=== PATIENT | male | born 1955 | race Caucasian/White ===

== ENCOUNTER → 2016-07-19 | Outpatient (REF) | payer OTHER ==
[~2016-07-19] MED LIST: ASPI325T PO; BACL10TA2 PO; DICL13PA TD; DULC10SU2 PR; FLEEENE4 PR; IBUP200C PO; IBUP80TA PO; LIPI10TA PO; LISI-542 PO; MILKSUS PO; NORCOTAB PO; NYST100024 TOP; OMEP20CA3 PO; PANT40TA2 PO; SENN1TAB3 PO; SENN8.6C PO; TYLE325T5 PO
[2016-07-19 13:05] LABS: ALBUMIN 3.2 GM/DL (3.2-5.2); ALBUMIN/GLOBULIN RATIO 0.67 (1.00-1.93); ALKALINE PHOSPHATASE 160 U/L (45-117); ALT/SGPT 24 U/L (12-78); ANION GAP 13 MEQ/L (8-16); AST/SGOT 22 U/L (15-37); BILIRUBIN,TOTAL 0.3 MG/DL (0.2-1.0); BLOOD UREA NITROGEN 18 MG/DL (7-18); CALCIUM LEVEL 8.4 MG/DL (8.8-10.2); CARBON DIOXIDE LEVEL 25 MEQ/L (21-32); CHLORIDE LEVEL 105 MEQ/L (98-107); CHOLESTEROL LEVEL 149 MG/DL (<200); CREATININE FOR GFR 0.99 MG/DL (0.70-1.30); GLOMERULAR FILTRATION RATE > 60.0 (>49); GLUCOSE, FASTING 100 MG/DL (80-110); SODIUM LEVEL 143 MEQ/L (136-145); TRIGLYCERIDES LEVEL 141 MG/DL (<150)
== END | disposition home or self-care (01) ==
LOC: M SFHCPLAZ 08:28
PROVIDERS: ATTEND Physician Assistant Medical
DX: I69.320 Aphasia following cerebral infarction (principal)

== ENCOUNTER → 2017-01-26 | Outpatient (REF) | payer MEDICARE ==
[~2017-01-26] MED LIST changes: -IBUP200C PO; +IBUP200C10 PO; -NYST100024 TOP; +NYST1POW9 TOP
[2017-01-26 13:08] LABS: BASO % 0.5 % (0.0-1.0); EOS # 0.2 K/mm3 (0.0-0.50); EOS % 3.7 % (0.0-3.0); LARGE UNSTAINED CELL # 0.1 K/mm3 (0.0-0.4); LARGE UNSTAINED CELL % 2.1 % (0.0-4.0); LYMPH # 1.5 K/mm3 (1.5-4.5); LYMPH % 23.3 % (24.0-44.0); MEAN CORPUSCULAR HEMOGLOBIN 29.4 pg (27.0-33.0); MEAN CORPUSCULAR HGB CONC 32.4 g/dl (32.0-36.5); MEAN CORPUSCULAR VOLUME 90.6 fl (80.0-96.0); MONO # 0.4 K/mm3 (0.0-0.8); MONO % 6.1 % (0.0-5.0); NEUTROPHILS # 4.1 K/mm3 (1.8-7.7); NEUTROPHILS % 64.3 % (36.0-66.0); PLATELET COUNT, AUTOMATED 230 k/mm3 (150-450); RED CELL DISTRIBUTION WIDTH 14.5 % (11.5-14.5); WHITE BLOOD COUNT 6.3 K/mm3 (4.0-10.0)
[2017-01-26 14:07] LABS: ALBUMIN 3.1 GM/DL (3.2-5.2); ALBUMIN/GLOBULIN RATIO 0.69 (1.00-1.93); ALKALINE PHOSPHATASE 139 U/L (45-117); ALT/SGPT 28 U/L (12-78); ANION GAP 8 MEQ/L (8-16); AST/SGOT 22 U/L (15-37); BILIRUBIN,TOTAL 0.3 MG/DL (0.2-1.0); BLOOD UREA NITROGEN 20 MG/DL (7-18); CALCIUM LEVEL 8.9 MG/DL (8.8-10.2); CARBON DIOXIDE LEVEL 28 MEQ/L (21-32); CHLORIDE LEVEL 105 MEQ/L (98-107); CHOLESTEROL LEVEL 202 MG/DL (<200); CREATININE FOR GFR 0.97 MG/DL (0.70-1.30); FREE T4 1.16 NG/DL (0.76-1.46); GLOMERULAR FILTRATION RATE > 60.0 (>49); GLUCOSE, FASTING 134 MG/DL (80-110); POTASSIUM SERUM 3.8 MEQ/L (3.5-5.1); SODIUM LEVEL 141 MEQ/L (136-145); TOTAL PROTEIN 7.6 GM/DL (6.4-8.2); TRIGLYCERIDES LEVEL 247 MG/DL (<150)
== END ==
LOC: M SFHCPLAZ 11:31
PROVIDERS: ATTEND Physician Assistant Medical
DX: I10 Essential (primary) hypertension (principal); E78.2 Mixed hyperlipidemia; F32.9 Major depressive disorder, single episode, unspecified
CPT/HCPCS: 80053; 80061; 82550; 84439; 84443; 85025; G0463

== ENCOUNTER → 2017-03-06 | Outpatient (CLI) | payer MEDICARE ==
--- NOTE | 2017-03-06 17:39 | REP ---
MRI BRAIN WITHOUT AND WITH CONTRAST: HISTORY: Vertigo. CONTRAST: ProHance 18 mL COMPARISON: 07/23/2015 An area of increased signal intensity on T2-weighted images is present in the left frontal, temporal and parietal lobes. There is dilatation of the overlying cortical sulci and body of the left lateral ventricle. This represents an old infarction. A chronic hemorrhagic component is present. An area of increased signal intensity on T2-weighted images is present in the right basal ganglia. This represents an old lacunar infarction. Scattered punctate areas of increased signal intensity on T2-weighted images are present in the periventricular and subcortical white matter. This represents small vessel ischemic disease. There is no acute intraparenchymal hemorrhage, acute infarct, mass or midline shift. There is minimal peripheral enhancement surrounding the chronic hemorrhagic component of the left hemispheric infarction. The ventricular system and cortical sulci are dilated consistent with mild volume loss. Cavum septi pellucidi and vergae are present. The left cerebral peduncle is atrophic consistent with Wallerian degeneration. There is no extracerebral collection. The sinuses are clear. IMPRESSION: 1. Old left hemispheric cerebral infarction. 2. Old right basal ganglia lacunar infarction. 3. Small vessel ischemic disease. 4. Mild volume loss. Signed by Wade Solitario MD 03/07/2017 09:05 A
== END ==
LOC: M RAD 15:39
PROVIDERS: ATTEND Physician Assistant Medical
DX: R42 Dizziness and giddiness (principal); I63.9 Cerebral infarction, unspecified
CPT/HCPCS: 70553; A9576

== ENCOUNTER → 2017-06-12 | Outpatient (CLI) | payer MEDICARE ==
[~2017-06-12] MED LIST changes: -ASPI325T PO; -BACL10TA2 PO; -DICL13PA TD; -DULC10SU2 PR; -FLEEENE4 PR; +GASTROGRAFIN SOLUTION 30ML (Q9963) As Ordered; -IBUP200C10 PO; -IBUP80TA PO; +ISOVUE-370 76% 100ML VIAL (Q9967) As Ordered; -LIPI10TA PO; -LISI-542 PO; -MILKSUS PO; -NORCOTAB PO; -NYST1POW9 TOP; -OMEP20CA3 PO; -PANT40TA2 PO; -SENN1TAB3 PO; -SENN8.6C PO; -TYLE325T5 PO
== END ==
LOC: M RAD 15:15
DX: R93.421 Abnormal radiologic findings on diagnostic imaging of right kidney (principal); K57.30 Diverticulosis of large intestine without perforation or abscess without bleeding
CPT/HCPCS: Q9963

== ENCOUNTER → 2017-06-27 | Outpatient (CLI) | payer MEDICARE ==
[~2017-06-27] MED LIST changes: -GASTROGRAFIN SOLUTION 30ML (Q9963) As Ordered; -ISOVUE-370 76% 100ML VIAL (Q9967) As Ordered; +PROHANCE 279.3MG/ML 15ML VIAL (A9576) As Ordered; +PROHANCE 279.3MG/ML 5ML VIAL (A9576) As Ordered
== END ==
LOC: M RAD 14:09
DX: N28.89 Other specified disorders of kidney and ureter (principal)
CPT/HCPCS: A9576

== ENCOUNTER 2017-07-05 09:19 | Outpatient (CLI) | payer MEDICARE ==
[2017-07-21] MEDS ORDERED: E-Z-GAS II EFFERVESCENT PACKET (SODIUM BICARB./CITRIC ACID/SIMETHICONE) As Ordered ×2 (09:02)
[2017-07-21] MEDS ORDERED: E-Z-PAQUE 96% w/w SUSP 176GM BTL As Ordered ×2 (09:02)
[2017-07-21] MEDS ORDERED: E-Z-HD 98% w/w 340GM SUSP BTL As Ordered ×2 (09:02)
== END 2017-07-21 ==
LOC: M RAD 09:19
DX: R10.13 Epigastric pain (principal); Z98.890 Other specified postprocedural states
CPT/HCPCS: 74245

== ENCOUNTER → 2017-07-17 | Outpatient (CLI) | payer MEDICARE ==
[2017-07-17 11:49] LABS: HEMATOCRIT 48.7 % (42.0-52.0); HEMOGLOBIN 15.1 g/dl (14.0-18.0); MEAN CORPUSCULAR HEMOGLOBIN 28.1 pg (27.0-33.0); MEAN CORPUSCULAR VOLUME 90.7 fl (80.0-96.0); PLATELET COUNT, AUTOMATED 205 10^3/uL (150-450); RED BLOOD COUNT 5.37 10^6/uL (4.30-6.10); RED CELL DISTRIBUTION WIDTH 16.2 % (11.5-14.5); WHITE BLOOD COUNT 7.6 10^3/uL (4.0-10.0)
[2017-07-17 11:59] LABS: INR 1.03; PROTHROMBIN TIME 13.6 SECONDS (12.4-14.5)
[2017-07-17 12:45] LABS: ALBUMIN 3.1 GM/DL (3.2-5.2); ALBUMIN/GLOBULIN RATIO 0.69 (1.00-1.93); ALKALINE PHOSPHATASE 133 U/L (45-117); ALT/SGPT 21 U/L (12-78); ANION GAP 7 MEQ/L (8-16); AST/SGOT 21 U/L (7-37); BILIRUBIN,TOTAL 0.3 MG/DL (0.2-1.0); BLOOD UREA NITROGEN 15 MG/DL (7-18); CALCIUM LEVEL 8.4 MG/DL (8.8-10.2); CARBON DIOXIDE LEVEL 29 MEQ/L (21-32); CHLORIDE LEVEL 107 MEQ/L (98-107); CREATININE FOR GFR 0.93 MG/DL (0.70-1.30); GLOMERULAR FILTRATION RATE > 60.0 (>49); GLUCOSE, FASTING 99 MG/DL (70-100); POTASSIUM SERUM 3.9 MEQ/L (3.5-5.1); PSA SCREENING 0.46 NG/ML (< 4.0); SODIUM LEVEL 143 MEQ/L (136-145); TOTAL PROTEIN 7.6 GM/DL (6.4-8.2)
== END ==
LOC: M LAB 10:57
DX: N28.89 Other specified disorders of kidney and ureter (principal); Z12.5 Encounter for screening for malignant neoplasm of prostate
CPT/HCPCS: 71046

== ENCOUNTER 2017-08-02 05:33 | Inpatient (IN) | payer MEDICARE ==
[2017-08-02] MEDS ORDERED: LR 1,000 ML IV (05:45)
[2017-08-02] MEDS ORDERED: LIDOCAINE 1% MDV 20ML VIAL SQ (05:45)
[2017-08-02] MEDS ORDERED: fentaNYL 250 MCG/5 ML INJECTION (J3010) As Ordered (07:49)
[2017-08-02] MEDS ORDERED: ROCURONIUM BROMIDE 50 MG/5 ML VIAL As Ordered ×3 (07:49→10:58)
[2017-08-02] MEDS ORDERED: MIDAZOLAM INJ 2 MG/2 ML VIAL (J2250) As Ordered (07:49)
[2017-08-02] MEDS ORDERED: LIDOCAINE 2% INJ 100 MG/5 ML SDV (FOR ANES.) As Ordered (07:49)
[2017-08-02] MEDS ORDERED: PROPOFOL 200 MG/20 ML VIAL As Ordered ×2 (07:49→12:01)
[2017-08-02] MEDS ORDERED: ONDANSETRON 4MG/2ML VIAL (J2405) IV ×2 (08:15→13:45)
[2017-08-02] MEDS ORDERED: ACETAMINOPHEN TAB 650MG DOSE (2X325MG) PO (08:15)
[2017-08-02] MEDS ORDERED: ESMOLOL INJ 100MG/10ML VIAL As Ordered (08:21)
[2017-08-02] MEDS ORDERED: HYDROmorphone HCL 2 MG/ML 1ML VIAL (J1170) As Ordered (08:46)
[2017-08-02] MEDS ORDERED: ONDANSETRON 4MG/2ML VIAL (J2405) As Ordered (08:48)
[2017-08-02] MEDS ORDERED: GLYCOPYRROLATE INJ 0.2 MG/ML 2 ML VIAL As Ordered ×2 (08:49→11:43)
[2017-08-02] MEDS ORDERED: NEOSTIGMINE 10 MG/10 ML VIAL (J2710) As Ordered (08:49)
[2017-08-02] MEDS ORDERED: LABETALOL HCL 100 MG/20 ML VIAL As Ordered (08:59)
[2017-08-02] MEDS: DOCUSATE SODIUM 100 MG CAP PO ×2 (09:00→20:09)
[2017-08-02] MEDS: MANNITOL 25% 12.5 GM/50 ML VIAL (J2150) As Ordered (09:23)
[2017-08-02] MEDS: FILTER 1.2 MICRON EXT SET (ADULT TPN & MANNITOL) XX (09:28)
[2017-08-02] MEDS ORDERED: ePHEDrine INJ 50 MG/ML VIAL As Ordered (11:34)
[2017-08-02] MEDS: BUPIVACAINE HCL 0.25% 30 ML VIAL As Ordered (12:30)
[2017-08-02] MEDS: LIDOCAINE 1% SDV INJ 30 ML VIAL As Ordered (12:30)
[2017-08-02] MEDS ORDERED: BACLOFEN 10 MG TAB PO (13:00)
[2017-08-02] MEDS: LABETALOL HCL 100 MG/20 ML VIAL IV (13:15)
[2017-08-02 13:23] LABS: HEMATOCRIT 44.5 % (42.0-52.0); HEMOGLOBIN 14.5 g/dl (14.0-18.0); MEAN CORPUSCULAR HEMOGLOBIN 29.2 pg (27.0-33.0); MEAN CORPUSCULAR HGB CONC 32.6 g/dl (32.0-36.5); MEAN CORPUSCULAR VOLUME 89.5 fl (80.0-96.0); PLATELET COUNT, AUTOMATED 230 10^3/uL (150-450); RED BLOOD COUNT 4.97 10^6/uL (4.30-6.10); RED CELL DISTRIBUTION WIDTH 15.7 % (11.5-14.5); WHITE BLOOD COUNT 13.7 10^3/uL (4.0-10.0)
[2017-08-02] MEDS ORDERED: fentaNYL 100 MCG/2 ML INJECTION (J3010) IV (13:45)
[2017-08-02] MEDS ORDERED: NORCO, ANEXSIA 5/325MG TABLET (HYDROcodone/ACETAMINOPHEN) PO (13:45)
[2017-08-02] MEDS: LR 1,000 ML IV (13:45)
[2017-08-02 13:46] LABS: ANION GAP 5 MEQ/L (8-16); BLOOD UREA NITROGEN 23 MG/DL (7-18); CALCIUM LEVEL 8.7 MG/DL (8.8-10.2); CARBON DIOXIDE LEVEL 31 MEQ/L (21-32); CHLORIDE LEVEL 103 MEQ/L (98-107); CREATININE FOR GFR 1.43 MG/DL (0.70-1.30); GLOMERULAR FILTRATION RATE 53.5 (>49); GLUCOSE, FASTING 127 MG/DL (70-100); POTASSIUM SERUM 5.1 MEQ/L (3.5-5.1); SODIUM LEVEL 139 MEQ/L (136-145)
[2017-08-02] MEDS: NS 1,000 ML IV ×2 (15:22→16:18)
[2017-08-02] MEDS: CEFAZOLIN SOD 1 GM in APPROPRIATE DILUENT 1 EA IV (16:18)
[2017-08-02] MEDS: MORPHINE 4 MG/ML 1ML VIAL (J2270) IV ×2 (16:19→18:18)
[2017-08-02] MEDS: PANTOPRAZOLE 40MG TAB (PROTONIX) PO (20:09)
[2017-08-02] MEDS: ATORVASTATIN 20 MG TAB PO (20:09)
[2017-08-02] MEDS: levETIRAcetam 250MG TABLET (KEPPRA) PO (20:10)
[2017-08-02] MEDS: PERCOCET 5MG/325MG TAB PO (20:11)
[2017-08-03] MEDS: NS 1,000 ML IV ×3 (00:10→22:58)
[2017-08-03] MEDS: CEFAZOLIN SOD 1 GM in APPROPRIATE DILUENT 1 EA IV (00:10)
[2017-08-03] MEDS: PERCOCET 5MG/325MG TAB PO ×3 (02:24→20:47)
[2017-08-03 07:17] LABS: ANION GAP 6 MEQ/L (8-16); BLOOD UREA NITROGEN 20 MG/DL (7-18); CALCIUM LEVEL 7.6 MG/DL (8.8-10.2); CARBON DIOXIDE LEVEL 27 MEQ/L (21-32); CHLORIDE LEVEL 106 MEQ/L (98-107); CREATININE FOR GFR 1.61 MG/DL (0.70-1.30); GLOMERULAR FILTRATION RATE 46.7 (>49); GLUCOSE, FASTING 108 MG/DL (70-100); POTASSIUM SERUM 4.3 MEQ/L (3.5-5.1); SODIUM LEVEL 139 MEQ/L (136-145)
[2017-08-03] MEDS ORDERED: MIRALAX *UNIT DOSE* 17GM PACKET PO (07:45)
[2017-08-03 08:20] LABS: HEMATOCRIT 38.3 % (42.0-52.0); MEAN CORPUSCULAR HGB CONC 32.4 g/dl (32.0-36.5); MEAN CORPUSCULAR VOLUME 89.5 fl (80.0-96.0); PLATELET COUNT, AUTOMATED 169 10^3/uL (150-450); RED BLOOD COUNT 4.28 10^6/uL (4.30-6.10); RED CELL DISTRIBUTION WIDTH 16.1 % (11.5-14.5); WHITE BLOOD COUNT 7.8 10^3/uL (4.0-10.0)
[2017-08-03] MEDS: CitaloPRAM (CeleXA) 20 MG TAB PO (08:21)
[2017-08-03] MEDS: levETIRAcetam 250MG TABLET (KEPPRA) PO ×2 (08:21→20:46)
[2017-08-03] MEDS: LACTULOSE 20 GM/30 ML SYRUP UD PO (08:21)
[2017-08-03] MEDS: PANTOPRAZOLE 40MG TAB (PROTONIX) PO ×2 (08:21→20:46)
[2017-08-03] MEDS: ASPIRIN 81 MG ENTERIC TAB PO (08:22)
[2017-08-03] MEDS: DOCUSATE SODIUM 100 MG CAP PO ×2 (08:22→20:46)
[2017-08-03 08:25] LABS: HEMOGLOBIN 12.4 g/dl (14.0-18.0)
[2017-08-03] MEDS: ATORVASTATIN 20 MG TAB PO (20:46)
[2017-08-03] MEDS: ALBUTEROL 90 MCG/ACT 8GM HFA INHALER INH (23:23)
[2017-08-04 06:01] LABS: HEMATOCRIT 39.3 % (42.0-52.0); HEMOGLOBIN 12.7 g/dl (14.0-18.0); MEAN CORPUSCULAR HEMOGLOBIN 28.8 pg (27.0-33.0); MEAN CORPUSCULAR HGB CONC 32.3 g/dl (32.0-36.5); MEAN CORPUSCULAR VOLUME 89.1 fl (80.0-96.0); PLATELET COUNT, AUTOMATED 167 10^3/uL (150-450); RED BLOOD COUNT 4.41 10^6/uL (4.30-6.10); WHITE BLOOD COUNT 10.3 10^3/uL (4.0-10.0)
[2017-08-04 06:20] LABS: ANION GAP 5 MEQ/L (8-16); BLOOD UREA NITROGEN 16 MG/DL (7-18); CALCIUM LEVEL 8.3 MG/DL (8.8-10.2); CARBON DIOXIDE LEVEL 28 MEQ/L (21-32); CHLORIDE LEVEL 106 MEQ/L (98-107); GLUCOSE, FASTING 104 MG/DL (70-100); POTASSIUM SERUM 4.4 MEQ/L (3.5-5.1); SODIUM LEVEL 139 MEQ/L (136-145)
[2017-08-04] MEDS: CitaloPRAM (CeleXA) 20 MG TAB PO (09:36)
[2017-08-04] MEDS: DOCUSATE SODIUM 100 MG CAP PO (09:36)
[2017-08-04] MEDS: ASPIRIN 81 MG ENTERIC TAB PO (09:36)
[2017-08-04] MEDS: TAMSULOSIN 0.4 MG CAP PO (09:36)
[2017-08-04] MEDS: levETIRAcetam 250MG TABLET (KEPPRA) PO (09:36)
[2017-08-04] MEDS: PANTOPRAZOLE 40MG TAB (PROTONIX) PO (09:36)
[2017-08-04] MEDS: LACTULOSE 20 GM/30 ML SYRUP UD PO (09:37)
== END 2017-08-04 12:30 | disposition home or self-care (01) | DRG 657 ==
LOC: M OR 05:33 → M MSPAV 14:29
PROC: 0TT04ZZ Resection of Right Kidney, Percutaneous Endoscopic Approach (ICD-10-PCS; principal; 2017-08-02 07:30)
PROC: 8E0W4CZ Robotic Assisted Procedure of Trunk Region, Percutaneous Endoscopic Approach (ICD-10-PCS; 2017-08-02 07:30)
DX: C64.1 Malignant neoplasm of right kidney, except renal pelvis (principal); I69.951 Hemiplegia and hemiparesis following unspecified cerebrovascular disease affecting right dominant side

== ENCOUNTER → 2017-08-10 | Outpatient (CLI) | payer MEDICARE ==
[2017-08-10 14:10] LABS: HEMATOCRIT 40.8 % (42.0-52.0); HEMOGLOBIN 12.7 g/dl (14.0-18.0); MEAN CORPUSCULAR HEMOGLOBIN 28.1 pg (27.0-33.0); MEAN CORPUSCULAR HGB CONC 31.1 g/dl (32.0-36.5); MEAN CORPUSCULAR VOLUME 90.3 fl (80.0-96.0); PLATELET COUNT, AUTOMATED 334 10^3/uL (150-450); RED BLOOD COUNT 4.52 10^6/uL (4.30-6.10); RED CELL DISTRIBUTION WIDTH 15.8 % (11.5-14.5)
[2017-08-10 14:40] LABS: ANION GAP 8 MEQ/L (8-16); BLOOD UREA NITROGEN 19 MG/DL (7-18); CALCIUM LEVEL 8.7 MG/DL (8.8-10.2); CARBON DIOXIDE LEVEL 29 MEQ/L (21-32); CHLORIDE LEVEL 105 MEQ/L (98-107); CREATININE FOR GFR 1.51 MG/DL (0.70-1.30); GLOMERULAR FILTRATION RATE 50.3 (>49); GLUCOSE, FASTING 86 MG/DL (70-100); POTASSIUM SERUM 4.8 MEQ/L (3.5-5.1); SODIUM LEVEL 142 MEQ/L (136-145)
== END ==
LOC: M SMT 09:18
DX: Z90.5 Acquired absence of kidney (principal); Z79.899 Other long term (current) drug therapy
CPT/HCPCS: 80048

== ENCOUNTER 2017-08-19 07:11 | Emergency (ER) | payer MEDICARE ==
[2017-08-19 07:39] LABS: BASO # 0.1 10^3/uL (0.0-0.2); BASO % 0.5 % (0.0-1.0); EOS # 0.6 10^3/uL (0.0-0.50); EOS % 4.4 % (0.0-3.0); HEMOGLOBIN 12.8 g/dl (14.0-18.0); IMMATURE GRANULOCYTE % 0.4 % (0-3.0); LYMPH # 1.8 10^3/uL (1.5-4.5); LYMPH % 13.9 % (24.0-44.0); MEAN CORPUSCULAR HEMOGLOBIN 28.6 pg (27.0-33.0); MEAN CORPUSCULAR VOLUME 89.3 fl (80.0-96.0); MONO # 0.7 10^3/uL (0.0-0.8); NEUTROPHILS % 75.8 % (36.0-66.0); PLATELET COUNT, AUTOMATED 437 10^3/uL (150-450); RED BLOOD COUNT 4.48 10^6/uL (4.30-6.10); RED CELL DISTRIBUTION WIDTH 15.3 % (11.5-14.5); WHITE BLOOD COUNT 13.1 10^3/uL (4.0-10.0)
[2017-08-19 08:06] LABS: ALBUMIN 2.8 GM/DL (3.2-5.2); ALBUMIN/GLOBULIN RATIO 0.53 (1.00-1.93); ALKALINE PHOSPHATASE 150 U/L (45-117); ALT/SGPT 34 U/L (12-78); ANION GAP 8 MEQ/L (8-16); AST/SGOT 64 U/L (7-37); BILIRUBIN,DIRECT < 0.1 MG/DL (0.0-0.2); BILIRUBIN,TOTAL 0.3 MG/DL (0.2-1.0); BLOOD UREA NITROGEN 21 MG/DL (7-18); CALCIUM LEVEL 8.8 MG/DL (8.8-10.2); CARBON DIOXIDE LEVEL 28 MEQ/L (21-32); CHLORIDE LEVEL 102 MEQ/L (98-107); CREATININE FOR GFR 1.63 MG/DL (0.70-1.30); GLUCOSE, FASTING 129 MG/DL (70-100); LIPASE 161 U/L (73-393); SODIUM LEVEL 138 MEQ/L (136-145); TOTAL PROTEIN 8.1 GM/DL (6.4-8.2)
[2017-08-19 08:07] LABS: LACTIC ACID SEPSIS PROTOCOL 1.9 MMOL/L (0.4-2.0)
[2017-08-19] MEDS: ONDANSETRON 4MG/2ML VIAL (J2405) IV (09:07)
[2017-08-19] MEDS: MORPHINE 2 MG/ML 1ML SYRINGE (J2270) IV (09:08)
== END 2017-08-19 10:18 | disposition home or self-care (01) ==
LOC: M ED 07:11
DX: R10.13 Epigastric pain (principal); J45.909 Unspecified asthma, uncomplicated; F41.9 Anxiety disorder, unspecified; F33.9 Major depressive disorder, recurrent, unspecified; Z90.5 Acquired absence of kidney; Z87.891 Personal history of nicotine dependence; I69.339 Monoplegia of upper limb following cerebral infarction affecting unspecified side; I69.349 Monoplegia of lower limb following cerebral infarction affecting unspecified side
CPT/HCPCS: J2405

== ENCOUNTER → 2017-08-30 | Outpatient (REF) | payer MEDICARE ==
[2017-08-30 18:43] LABS: BASO # 0.1 10^3/uL (0.0-0.2); BASO % 0.7 % (0.0-1.0); EOS # 0.3 10^3/uL (0.0-0.50); EOS % 4.5 % (0.0-3.0); HEMATOCRIT 42.7 % (42.0-52.0); HEMOGLOBIN 13.5 g/dl (14.0-18.0); IMMATURE GRANULOCYTE % 0.3 % (0-3.0); LYMPH # 1.3 10^3/uL (1.5-4.5); LYMPH % 18.6 % (24.0-44.0); MEAN CORPUSCULAR HEMOGLOBIN 28.5 pg (27.0-33.0); MEAN CORPUSCULAR HGB CONC 31.6 g/dl (32.0-36.5); MEAN CORPUSCULAR VOLUME 90.1 fl (80.0-96.0); MONO # 0.4 10^3/uL (0.0-0.8); MONO % 5.9 % (0.0-5.0); PLATELET COUNT, AUTOMATED 272 10^3/uL (150-450); RED BLOOD COUNT 4.74 10^6/uL (4.30-6.10); RED CELL DISTRIBUTION WIDTH 15.7 % (11.5-14.5); WHITE BLOOD COUNT 7.2 10^3/uL (4.0-10.0)
[2017-08-30 19:05] LABS: ALBUMIN 3.2 GM/DL (3.2-5.2); ALBUMIN/GLOBULIN RATIO 0.68 (1.00-1.93); ALKALINE PHOSPHATASE 230 U/L (45-117); ALT/SGPT 43 U/L (12-78); ANION GAP 6 MEQ/L (8-16); AST/SGOT 24 U/L (7-37); BILIRUBIN,TOTAL 0.4 MG/DL (0.2-1.0); BLOOD UREA NITROGEN 19 MG/DL (7-18); CALCIUM LEVEL 8.8 MG/DL (8.8-10.2); CARBON DIOXIDE LEVEL 28 MEQ/L (21-32); CHLORIDE LEVEL 105 MEQ/L (98-107); CREATININE FOR GFR 1.59 MG/DL (0.70-1.30); GLOMERULAR FILTRATION RATE 47.4 (>49); GLUCOSE, FASTING 123 MG/DL (70-100); POTASSIUM SERUM 4.3 MEQ/L (3.5-5.1); SODIUM LEVEL 139 MEQ/L (136-145); TOTAL PROTEIN 7.9 GM/DL (6.4-8.2)
== END ==
LOC: M SFHCPLAZ 15:07
DX: D50.8 Other iron deficiency anemias (principal)
CPT/HCPCS: 80053

== ENCOUNTER 2017-09-22 08:14 | Day surgery (SDC) | payer MEDICARE ==
[2017-09-22] MEDS: NS 1,000 ML IV (08:30)
[2017-09-22] MEDS ORDERED: fentaNYL 100 MCG/2 ML INJECTION (J3010) As Ordered (09:54)
[2017-09-22] MEDS ORDERED: LIDOCAINE 2% INJ 100 MG/5 ML SDV (FOR ANES.) As Ordered (09:54)
[2017-09-22] MEDS ORDERED: PROPOFOL 200 MG/20 ML VIAL As Ordered (09:54)
== END 2017-09-22 10:27 | disposition home or self-care (01) ==
LOC: M OPP 08:14
DX: R12 Heartburn (principal); K22.8 Other specified diseases of esophagus; C64.1 Malignant neoplasm of right kidney, except renal pelvis; Z90.5 Acquired absence of kidney; J11.1 Influenza due to unidentified influenza virus with other respiratory manifestations; I10 Essential (primary) hypertension; E78.5 Hyperlipidemia, unspecified; K21.9 Gastro-esophageal reflux disease without esophagitis; I63.9 Cerebral infarction, unspecified; J45.909 Unspecified asthma, uncomplicated; G47.8 Other sleep disorders; R06.83 Snoring; Z79.82 Long term (current) use of aspirin; Z79.899 Other long term (current) drug therapy
CPT/HCPCS: 43239

== ENCOUNTER 2017-12-19 09:12 | Outpatient (RCR) | payer MEDICARE | END 2018-01-02 | LOC: M ST 09:12 | DX: Z51.89 Encounter for other specified aftercare (principal); I69.320 Aphasia following cerebral infarction | CPT/HCPCS: 92507 ==

== ENCOUNTER → 2017-12-19 | Outpatient (CLI) | payer MEDICARE ==
[2017-12-19 11:15] LABS: ALBUMIN 3.1 GM/DL (3.2-5.2); ALBUMIN/GLOBULIN RATIO 0.69 (1.00-1.93); ALKALINE PHOSPHATASE 139 U/L (45-117); ALT/SGPT 19 U/L (12-78); ANION GAP 7 MEQ/L (8-16); AST/SGOT 16 U/L (7-37); BILIRUBIN,TOTAL 0.2 MG/DL (0.2-1.0); BLOOD UREA NITROGEN 17 MG/DL (7-18); CALCIUM LEVEL 8.6 MG/DL (8.8-10.2); CARBON DIOXIDE LEVEL 28 MEQ/L (21-32); CHLORIDE LEVEL 106 MEQ/L (98-107); CHOLESTEROL LEVEL 144 MG/DL (<200); CHOLESTEROL RISK RATIO 3.428 (<5); CREATININE FOR GFR 1.52 MG/DL (0.70-1.30); FERRITIN 31 NG/ML (26-388); GLOMERULAR FILTRATION RATE 49.9 (>49); GLUCOSE, FASTING 160 MG/DL (70-100); HDL CHOLESTEROL 42 MG/DL (>40); IRON (FE) 48 UG/DL (65-175); LDL CHOLESTEROL 62.6 MG/DL (<100); NON-HDL-C 102 MG/DL; PERCENT SATURATION 17.9 % (19.7-50.0); POTASSIUM SERUM 3.6 MEQ/L (3.5-5.1); SODIUM LEVEL 141 MEQ/L (136-145); TOTAL IRON BINDING CAPACITY 268 UG/DL (250-450); TOTAL PROTEIN 7.6 GM/DL (6.4-8.2); TRIGLYCERIDES LEVEL 197 MG/DL (<150)
[2017-12-19 11:31] LABS: ESTIMATED AVERAGE GLUCOSE 128 MG/DL (60-110); HEMOGLOBIN A1c 6.1 %
== END ==
LOC: M LAB 10:13
DX: D50.8 Other iron deficiency anemias (principal); R73.01 Impaired fasting glucose; I10 Essential (primary) hypertension; E78.2 Mixed hyperlipidemia
CPT/HCPCS: 83550

== ENCOUNTER → 2018-04-11 | Outpatient (REF) | payer MEDICARE ==
[2018-04-11 16:46] LABS: BASO % 0.4 % (0.0-1.0); EOS # 0.4 10^3/uL (0.0-0.50); EOS % 5.9 % (0.0-3.0); HEMATOCRIT 42.9 % (42.0-52.0); HEMOGLOBIN 13.8 g/dl (13.5-17.5); IMMATURE GRANULOCYTE % 0.1 % (0-3.0); LYMPH # 1.1 10^3/uL (1.5-4.5); MEAN CORPUSCULAR HEMOGLOBIN 29.2 pg (27.0-33.0); MEAN CORPUSCULAR HGB CONC 32.2 g/dl (32.0-36.5); MEAN CORPUSCULAR VOLUME 90.7 fl (80.0-96.0); MONO # 0.4 10^3/uL (0.0-0.8); MONO % 6.2 % (0.0-5.0); NEUTROPHILS # 4.9 10^3/uL (1.8-7.7); NEUTROPHILS % 71.4 % (36.0-66.0); PLATELET COUNT, AUTOMATED 211 10^3/uL (150-450); RED BLOOD COUNT 4.73 10^6/uL (4.30-6.10); WHITE BLOOD COUNT 6.9 10^3/uL (4.0-10.0)
[2018-04-11 17:09] LABS: ESTIMATED AVERAGE GLUCOSE 126 MG/DL (60-110)
[2018-04-11 17:14] LABS: FERRITIN 47 NG/ML (26-388); IRON (FE) 51 UG/DL (65-175); PERCENT SATURATION 18.7 % (19.7-50.0); TOTAL IRON BINDING CAPACITY 273 UG/DL (250-450)
== END ==
LOC: M SFHCPLAZ 16:16
DX: D50.8 Other iron deficiency anemias (principal); R73.01 Impaired fasting glucose; Z23 Encounter for immunization
CPT/HCPCS: 83550

== ENCOUNTER 2018-06-21 13:47 | Emergency (ER) | payer MEDICARE, OTHER ==
[~2018-06-21] VITALS: Ht 170.2 cm; Wt 87.0 kg
[~2018-06-21 13:47] MED LIST changes: +ACET1TAB55 PO; +ASMA220A IN; +ASPI1TAB PO; +ASPI325T PO; +BACL10TA2 PO; +CITA40TA4 PO; +COLA100C5 PO; +DICL13PA TD; +DULC10SU2 PR; +FLEEENE4 PR; +FLOM0.4C39 PO; +IBUP200C25 PO; +IBUP80TA PO; +KEPP1TAB PO; +LACT10SO29 PO; +LEVE500T64 PO; +LIPI10TA PO; +LISI-542 PO; +MILK120011 PO; +MIRA33504 PO; +NORCOTAB PO; +NYST1POW9 TOP; +OMEP20CA3 PO; +OSEL75CA PO; +OXYC1TAB23 PO; +PANT40TA3 PO; +PROAAER10 INH; -PROHANCE 279.3MG/ML 15ML VIAL (A9576) As Ordered; -PROHANCE 279.3MG/ML 5ML VIAL (A9576) As Ordered; +SENN1TAB3 PO; +SENN8.6C PO; +TYLE325T5 PO
--- NOTE | 2018-06-21 15:01 | REP ---
CT Head without contrast HISTORY: Fall COMPARISON: 12/14/2014 An area of decreased attenuation is present in the left frontal, temporal and parietal lobes. There is dilatation of the overlying cortical sulci and anterior horn and body of the left lateral ventricle. This represents an old infarction. An area of decreased attenuation is present in the left internal capsule and thalamus. This represents an old lacunar infarction. There is no intraparenchymal hemorrhage, acute infarct, mass or midline shift. The ventricular system and cortical sulci are dilated consistent with mild volume loss. There is no extra cerebral collection. There is no fracture. Mucosal thickening is present in the ethmoid sinuses. IMPRESSION: 1. Old left frontal, temporal and parietal lobe infarction. 2. Old left internal capsule and thalamic lacunar infarction. 3. Mild volume loss. Electronically Signed by Wade Solitario MD 06/21/2018 02:53 P
--- NOTE | 2018-06-21 15:07 | REP ---
CT cervical spine without contrast HISTORY: Fall COMPARISON: 12/14/2014 There is no acute fracture or subluxation. A disc bulge is present at the C3-4 level. Disc bulges with associated osteophyte formation are present at the C4-5 and C5-6 levels. There is minimal narrowing of the spinal canal. Uncinate process hypertrophy is present at the C4-5 and C5-6 levels. This produces mild to moderate narrowing of the neural foramina. The C4-5 and C5-6 intervertebral discs are decreased in height consistent with disc degeneration. IMPRESSION: 1. There is no acute fracture or subluxation. 2. There is cervical spondylosis at the C3-4 through C5-6 levels. Electronically Signed by Wade Solitario MD 06/21/2018 02:58 P
--- NOTE | 2018-06-21 15:15 | REP ---
RIGHT KNEE, FOUR VIEWS: HISTORY: Pain. There is no acute fracture or dislocation. The joint spaces are normal in appearance. IMPRESSION: There is no acute fracture or dislocation. Electronically Signed by Wade Solitario MD 06/21/2018 03:16 P
[2018-06-21 16:05] VITALS: BP 154/67
== END 2018-06-21 16:11 | disposition home or self-care (01) ==
LOC: EDBD 13:47 → M ED 13:47
DX: S83.91XA Sprain of unspecified site of right knee, initial encounter (principal); S80.01XA Contusion of right knee, initial encounter; W19.XXXA Unspecified fall, initial encounter; Y92.091 Bathroom in other non-institutional residence as the place of occurrence of the external cause; Y93.9 Activity, unspecified; Y99.9 Unspecified external cause status; I50.9 Heart failure, unspecified; M47.812 Spondylosis without myelopathy or radiculopathy, cervical region; Z79.82 Long term (current) use of aspirin; Z79.899 Other long term (current) drug therapy

== ENCOUNTER → 2018-07-09 | Outpatient (REF) | payer MEDICARE | LOC: M SFHCPLAZ 10:49 | PROVIDERS: ATTEND Physician Assistant Medical | DX: D50.8 Other iron deficiency anemias (principal); N40.0 Benign prostatic hyperplasia without lower urinary tract symptoms ==

== ENCOUNTER → 2018-07-23 | Outpatient (REF) | payer MEDICARE ==
[2018-07-23 16:28] LABS: BASO % 0.6 % (0.0-1.0); EOS # 0.3 10^3/uL (0.0-0.50); EOS % 4.6 % (0.0-3.0); HEMATOCRIT 46.6 % (42.0-52.0); HEMOGLOBIN 14.4 g/dl (13.5-17.5); LYMPH # 1.8 10^3/uL (1.5-4.5); LYMPH % 25.9 % (24.0-44.0); MEAN CORPUSCULAR HEMOGLOBIN 28.9 pg (27.0-33.0); MEAN CORPUSCULAR HGB CONC 30.9 g/dl (32.0-36.5); MEAN CORPUSCULAR VOLUME 93.4 fl (80.0-96.0); MONO # 0.5 10^3/uL (0.0-0.8); MONO % 6.3 % (0.0-5.0); NEUTROPHILS # 4.4 10^3/uL (1.8-7.7); NEUTROPHILS % 62.5 % (36.0-66.0); PLATELET COUNT, AUTOMATED 232 10^3/uL (150-450); RED BLOOD COUNT 4.99 10^6/uL (4.30-6.10); WHITE BLOOD COUNT 7.1 10^3/uL (4.0-10.0)
[2018-07-23 16:33] LABS: PERCENT SATURATION 11.3 % (19.7-50.0)
== END ==
LOC: M SFHCPLAZ 13:11
PROVIDERS: ATTEND Physician Assistant Medical
DX: D50.8 Other iron deficiency anemias (principal); N40.0 Benign prostatic hyperplasia without lower urinary tract symptoms
CPT/HCPCS: 36415; 82728; 83550; 85025; G0103

== ENCOUNTER → 2018-09-03 | Outpatient (REF) | payer MEDICARE ==
[~2018-09-03] MED LIST changes: +ASPI-1 PO; -ASPI1TAB PO; -ASPI325T PO; +ASPI81TA26 PO; +HYDR-3715 PO; -LEVE500T64 PO; +LEVE500T88 PO; -NORCOTAB PO
[2018-09-03 18:21] LABS: ALBUMIN 3.1 GM/DL (3.2-5.2); BILIRUBIN,TOTAL 0.2 MG/DL (0.2-1.0); CALCIUM LEVEL 8.5 MG/DL (8.8-10.2); CREATININE FOR GFR 1.74 MG/DL (0.70-1.30); GLOMERULAR FILTRATION RATE 42.5 (>49); POTASSIUM SERUM 4.4 MEQ/L (3.5-5.1); TOTAL PROTEIN 7.6 GM/DL (6.4-8.2)
[2018-09-03 19:02] LABS: HEMOGLOBIN A1c 5.9 %
== END ==
LOC: M SFHCPLAZ 15:14
PROVIDERS: ATTEND Physician Assistant Medical
DX: R73.01 Impaired fasting glucose (principal); Z90.5 Acquired absence of kidney
CPT/HCPCS: 36415; 80053; 83036; G0463

== ENCOUNTER → 2019-01-10 | Outpatient (REF) | payer MEDICARE ==
[~2019-01-10] MED LIST changes: -OMEP20CA3 PO; +OMEP20CA4 PO
[2019-01-10 13:06] LABS: BASO % 0.5 % (0.0-1.0); EOS # 0.3 10^3/uL (0.0-0.50); EOS % 3.5 % (0.0-3.0); HEMATOCRIT 45.3 % (42.0-52.0); HEMOGLOBIN 14.1 g/dl (13.5-17.5); LYMPH # 1.9 10^3/uL (1.5-4.5); LYMPH % 22.6 % (24.0-44.0); MEAN CORPUSCULAR HEMOGLOBIN 29.3 pg (27.0-33.0); MEAN CORPUSCULAR HGB CONC 31.1 g/dl (32.0-36.5); MONO # 0.6 10^3/uL (0.0-0.8); MONO % 6.7 % (0.0-5.0); NEUTROPHILS # 5.7 10^3/uL (1.8-7.7); NEUTROPHILS % 66.1 % (36.0-66.0); PLATELET COUNT, AUTOMATED 219 10^3/uL (150-450); RED BLOOD COUNT 4.82 10^6/uL (4.30-6.10); WHITE BLOOD COUNT 8.6 10^3/uL (4.0-10.0)
[2019-01-10 13:38] LABS: PERCENT SATURATION 13.3 % (19.7-50.0)
== END ==
LOC: M SFHCPLAZ 10:38
PROVIDERS: ATTEND Physician Assistant Medical
DX: K21.9 Gastro-esophageal reflux disease without esophagitis (principal)

== ENCOUNTER 2019-01-15 01:56 | Emergency (ER) | payer MEDICARE, MEDICAID ==
[~2019-01-15] VITALS: Ht 177.8 cm; Wt 91.8 kg
[2019-01-15 02:40] LABS: BASO # 0.1 10^3/uL (0.0-0.2); BASO % 0.6 % (0.0-1.0); EOS # 0.3 10^3/uL (0.0-0.50); EOS % 2.4 % (0.0-3.0); HEMOGLOBIN 14.1 g/dl (13.5-17.5); LYMPH # 1.7 10^3/uL (1.5-4.5); LYMPH % 15.7 % (24.0-44.0); MEAN CORPUSCULAR HEMOGLOBIN 29.3 pg (27.0-33.0); MEAN CORPUSCULAR HGB CONC 31.3 g/dl (32.0-36.5); MEAN CORPUSCULAR VOLUME 93.6 fl (80.0-96.0); MONO # 0.6 10^3/uL (0.0-0.8); MONO % 5.4 % (0.0-5.0); NEUTROPHILS # 8.1 10^3/uL (1.8-7.7); NEUTROPHILS % 75.5 % (36.0-66.0); PLATELET COUNT, AUTOMATED 215 10^3/uL (150-450); RED BLOOD COUNT 4.81 10^6/uL (4.30-6.10); WHITE BLOOD COUNT 10.8 10^3/uL (4.0-10.0)
[2019-01-15 02:51] LABS: INR 1.04; PARTIAL THROMBOPLASTIN TIME 30.6 SECONDS (25.0-38.4); PROTHROMBIN TIME 13.3 SECONDS (11.8-14.0)
[2019-01-15 03:17] LABS: ALBUMIN 3.3 GM/DL (3.2-5.2); ALT/SGPT 17 U/L (12-78); BILIRUBIN,DIRECT < 0.1 MG/DL (0.0-0.2); BILIRUBIN,TOTAL 0.2 MG/DL (0.2-1.0); BLOOD UREA NITROGEN 19 MG/DL (7-18); CALCIUM LEVEL 8.9 MG/DL (8.8-10.2); CARBON DIOXIDE LEVEL 32 MEQ/L (21-32); CHLORIDE LEVEL 106 MEQ/L (98-107); CREATININE FOR GFR 1.86 MG/DL (0.70-1.30); GLOMERULAR FILTRATION RATE 39.4 (>49); GLUCOSE, FASTING 114 MG/DL (70-100); LIPASE 113 U/L (73-393); POTASSIUM SERUM 4.3 MEQ/L (3.5-5.1); SODIUM LEVEL 143 MEQ/L (136-145); TOTAL PROTEIN 7.9 GM/DL (6.4-8.2)
[2019-01-15] MEDS ORDERED: SUCRALFATE SUSP 1GM/10ML UD PO ONE (05:00)
[2019-01-15] MEDS ORDERED: GI COCKTAIL 50ML BTL(HYOSCYAMINE/MAALOX/LIDOCAINE VISCOUS)(1:3:1) PO ONE (05:00)
--- NOTE | 2019-01-15 06:22 | REPVR ---
EXAM: US Abdomen Limited, Right Upper Quadrant EXAM DATE/TIME: 01/15/2019 3:09 AM CLINICAL HISTORY: 63 years old, male; Abdominal pain; Acute; Additional info: Gb eval TECHNIQUE: Imaging protocol: Real-time ultrasound of the abdomen with image documentation. Examination was focused on the right upper quadrant. COMPARISON: RENAL US 12/15/2014 10:04 AM FINDINGS: Limitations: Examination limited due to patient condition and body habitus. Liver: The liver is echogenic with attenuation of the ultrasound beam, consistent with fatty liver. Gallbladder: No stones or sludge are seen in the gallbladder. No significant gallbladder wall thickening is identified. Common bile duct: Where visible, the common bile duct is normal in size measuring 5 mm in diameter. Pancreas: The pancreas is visualized, obscured by bowel gas. Right kidney: The right kidney is not identified, consistent with prior nephrectomy. IMPRESSION: 1. Limited exam. 2. Echogenic liver consistent with fatty liver. 3. No cholelithiasis or signs of acute cholecystitis identified. Electronically signed by: Salma Ramos On 01/15/2019 06:21:51 AM
[2019-01-15 06:49] VITALS: BP 148/81
== END 2019-01-15 06:50 | disposition home or self-care (01) ==
LOC: M ED 01:56
DX: K29.70 Gastritis, unspecified, without bleeding (principal); I10 Essential (primary) hypertension; E78.5 Hyperlipidemia, unspecified; K21.9 Gastro-esophageal reflux disease without esophagitis; Z79.899 Other long term (current) drug therapy; Z79.82 Long term (current) use of aspirin

== ENCOUNTER → 2019-01-22 | Outpatient (CLI) | payer MEDICARE, MEDICAID ==
[~2019-01-22] MED LIST changes: +E-Z-GAS II EFFERVESCENT PACKET (SODIUM BICARB./CITRIC ACID/SIMETHICONE) As Ordered ONE; +E-Z-HD 98% w/w 340GM SUSP BTL As Ordered ONE; +E-Z-PAQUE 96% w/w SUSP 176GM BTL As Ordered ONE
--- NOTE | 2019-01-22 19:54 | REP ---
Upper GI Air Contrast with SBFT The procedure was performed by DESTINEY Keller, under the the direct supervision of Dr. Mcgowan. The images were reviewed with Dr. Mcgowan. The miller first film shows no organomegaly or pathological masses. The intestinal gas pattern appears normal. Liquid barium was given in the erect position as well as liquid barium in the prone position in order to perform a double contrast upper GI examination. This exam is limited due to the patient's limited mobility. The oral and pharyngeal stages of deglutition were unremarkable. Esophageal transport is efficient and there is no esophagitis, stricture, or mucosal ring noted. There is no hiatal hernia. Gastroesophageal reflux was visualized to the level of the shaq. The stomach kerr are normally outlined. The rugal folds are smooth and regular. There is no gastritis, neoplasm, or ulcer disease noted. The duodenal kerr are normally outlined. The mucosal folds are smooth and regular. There is no duodenitis, peptic ulcer disease, or neoplasm noted. The visualized portion of the proximal small bowel appears normal in course and caliber. The barium column was followed through the small bowel to the level of the terminal ileum. Small bowel transit time was approximately 40 minutes. During fluoroscopy gentle palpation shows all loops are freely mobile and pliable. There are no fixed or angulated loops. The small bowel mucosal pattern is normal in course and caliber. There is no transition to set suggest a partial small-bowel obstruction. Spot filming of the terminal ileum shows it to be unremarkable. Impression: 1. Gastroesophageal reflux was observed in this limited upper GI with small bowel follow-through 0.4 minutes of fluoroscopy time was utilized for this procedure. Some fluoroscopic images are performed with last image hold technology. These images require no additional radiation. Reviewed by DESTINEY Mcpherson 01/22/2019 03:56 P Electronically Signed by Ananda Mcgowan MD 01/22/2019 07:45 P
== END ==
LOC: M RAD 07:07
PROVIDERS: ATTEND Physician Assistant Medical
DX: K21.9 Gastro-esophageal reflux disease without esophagitis (principal)

== ENCOUNTER → 2019-04-08 | Outpatient (REF) | payer MEDICARE ==
[~2019-04-08] MED LIST changes: -E-Z-GAS II EFFERVESCENT PACKET (SODIUM BICARB./CITRIC ACID/SIMETHICONE) As Ordered ONE; -E-Z-HD 98% w/w 340GM SUSP BTL As Ordered ONE; -E-Z-PAQUE 96% w/w SUSP 176GM BTL As Ordered ONE
[2019-04-08 17:46] LABS: BASO % 0.5 % (0.0-1.0); EOS # 0.3 10^3/uL (0.0-0.5); EOS % 3.1 % (0.0-3.0); HEMATOCRIT 45.6 % (42.0-52.0); LYMPH # 1.9 10^3/uL (1.5-5.0); LYMPH % 21.4 % (24.0-44.0); MEAN CORPUSCULAR HEMOGLOBIN 28.7 pg (27.0-33.0); MEAN CORPUSCULAR HGB CONC 30.7 g/dl (32.0-36.5); MEAN CORPUSCULAR VOLUME 93.4 fl (80.0-96.0); MONO # 0.8 10^3/uL (0.0-0.8); MONO % 8.9 % (0.0-5.0); NEUTROPHILS # 5.8 10^3/uL (1.5-8.5); NEUTROPHILS % 65.9 % (36.0-66.0); PLATELET COUNT, AUTOMATED 227 10^3/uL (150-450); RED BLOOD COUNT 4.88 10^6/uL (4.30-6.10); WHITE BLOOD COUNT 8.9 10^3/uL (4.0-10.0)
[2019-04-08 18:13] LABS: HEMOGLOBIN A1c 6.2 %
[2019-04-08 18:16] LABS: ALBUMIN 3.2 GM/DL (3.2-5.2); BILIRUBIN,TOTAL 0.4 MG/DL (0.2-1.0); CALCIUM LEVEL 8.8 MG/DL (8.8-10.2); CHOLESTEROL RISK RATIO 4.277 (<5); CREATININE FOR GFR 1.58 MG/DL (0.70-1.30); GLOMERULAR FILTRATION RATE 47.5 (>49); POTASSIUM SERUM 4.7 MEQ/L (3.5-5.1); TOTAL PROTEIN 7.6 GM/DL (6.4-8.2)
== END ==
LOC: M SFHCPLAZ 15:31
PROVIDERS: ATTEND Physician Assistant Medical
DX: R73.01 Impaired fasting glucose (principal); I10 Essential (primary) hypertension; E78.2 Mixed hyperlipidemia
CPT/HCPCS: 36415; 80053; 80061; 83036; 85025; G0463

== ENCOUNTER → 2019-08-08 | Outpatient (REF) | payer MEDICARE ==
[~2019-08-08] MED LIST changes: +OMEP1CAP73 PO; -OMEP20CA4 PO
[2019-08-08 17:18] LABS: BASO # 0.1 10^3/uL (0.0-0.2); BASO % 0.7 % (0.0-1.0); EOS # 0.3 10^3/uL (0.0-0.5); EOS % 2.9 % (0.0-3.0); HEMATOCRIT 46.9 % (42.0-52.0); HEMOGLOBIN 14.7 g/dl (13.5-17.5); LYMPH # 1.8 10^3/uL (1.5-5.0); LYMPH % 20.7 % (24.0-44.0); MEAN CORPUSCULAR HEMOGLOBIN 28.5 pg (27.0-33.0); MEAN CORPUSCULAR HGB CONC 31.3 g/dl (32.0-36.5); MEAN CORPUSCULAR VOLUME 90.9 fl (80.0-96.0); MONO # 0.8 10^3/uL (0.0-0.8); MONO % 8.8 % (0.0-5.0); NEUTROPHILS # 5.7 10^3/uL (1.5-8.5); NEUTROPHILS % 65.9 % (36.0-66.0); PLATELET COUNT, AUTOMATED 267 10^3/uL (150-450); RED BLOOD COUNT 5.16 10^6/uL (4.30-6.10); WHITE BLOOD COUNT 8.6 10^3/uL (4.0-10.0)
[2019-08-08 17:42] LABS: ALBUMIN 3.4 GM/DL (3.2-5.2); ALT/SGPT 28 U/L (12-78); BILIRUBIN,TOTAL 0.2 MG/DL (0.2-1.0); BLOOD UREA NITROGEN 17 MG/DL (7-18); CALCIUM LEVEL 9.1 MG/DL (8.8-10.2); CARBON DIOXIDE LEVEL 29 MEQ/L (21-32); CHLORIDE LEVEL 106 MEQ/L (98-107); CHOLESTEROL LEVEL 288 MG/DL (<200); CPK CREATINE PHOSPHOKINASE 76 U/L (39-308); CREATININE FOR GFR 1.57 MG/DL (0.70-1.30); FERRITIN 24 NG/ML (26-388); GLOMERULAR FILTRATION RATE 47.7 (>49); GLUCOSE, FASTING 79 MG/DL (70-100); HDL CHOLESTEROL 32 MG/DL (>40); IRON (FE) 50 UG/DL (65-175); NON-HDL-C 256 MG/DL; POTASSIUM SERUM 4.5 MEQ/L (3.5-5.1); SODIUM LEVEL 140 MEQ/L (136-145); TOTAL PROTEIN 8.2 GM/DL (6.4-8.2); TRIGLYCERIDES LEVEL 443 MG/DL (<150)
[2019-08-08 18:12] LABS: HEMOGLOBIN A1c 6.3 %
== END ==
LOC: M SFHCPLAZ 15:56
PROVIDERS: ATTEND Physician Assistant Medical
DX: E78.2 Mixed hyperlipidemia (principal); E61.1 Iron deficiency; I10 Essential (primary) hypertension; R73.01 Impaired fasting glucose; Z12.5 Encounter for screening for malignant neoplasm of prostate
CPT/HCPCS: 36415; 80053; 80061; 82550; 82728; 83036; 83540; 85025; 85046; G0103; G0463

== ENCOUNTER → 2019-12-12 | Outpatient (REF) | payer MEDICARE ==
[~2019-12-12] MED LIST changes: -LACT10SO29 PO; +LACT20EL PO; +PANT40TA29 PO; -PANT40TA3 PO
[2019-12-12 15:38] LABS: BASO # 0.1 10^3/uL (0.0-0.2); BASO % 0.6 % (0.0-1.0); EOS # 0.3 10^3/uL (0.0-0.5); EOS % 3.3 % (0.0-3.0); HEMATOCRIT 46.3 % (42.0-52.0); HEMOGLOBIN 14.1 g/dl (13.5-17.5); LYMPH # 2.3 10^3/uL (1.5-5.0); MEAN CORPUSCULAR HEMOGLOBIN 28.5 pg (27.0-33.0); MEAN CORPUSCULAR HGB CONC 30.5 g/dl (32.0-36.5); MEAN CORPUSCULAR VOLUME 93.5 fl (80.0-96.0); MONO # 0.8 10^3/uL (0.0-0.8); MONO % 8.5 % (0.0-5.0); NEUTROPHILS # 5.4 10^3/uL (1.5-8.5); NEUTROPHILS % 61.4 % (36.0-66.0); PLATELET COUNT, AUTOMATED 239 10^3/uL (150-450); RED BLOOD COUNT 4.95 10^6/uL (4.30-6.10); WHITE BLOOD COUNT 8.8 10^3/uL (4.0-10.0)
[2019-12-12 16:08] LABS: HEMOGLOBIN A1c 5.5 %
[2019-12-12 16:15] LABS: ALBUMIN 3.3 GM/DL (3.2-5.2); BILIRUBIN,TOTAL 0.3 MG/DL (0.2-1.0); CALCIUM LEVEL 8.7 MG/DL (8.8-10.2); CHOLESTEROL RISK RATIO 4.864 (<5); CREATININE FOR GFR 1.63 MG/DL (0.70-1.30); GLOMERULAR FILTRATION RATE 45.7 (>49); POTASSIUM SERUM 4.8 MEQ/L (3.5-5.1); TOTAL PROTEIN 7.9 GM/DL (6.4-8.2)
== END ==
LOC: M SFHCPLAZ 12:33
PROVIDERS: ATTEND Physician Assistant Medical
DX: D50.8 Other iron deficiency anemias (principal); I10 Essential (primary) hypertension; R73.01 Impaired fasting glucose; E78.2 Mixed hyperlipidemia

== ENCOUNTER → 2020-04-14 | Outpatient (REF) | payer MEDICARE, MEDICAID ==
[2020-04-14 18:04] LABS: BACTERIA, URINE AUTO NEGATIVE (NEGATIVE); RBC, URINE AUTO 0 /HPF (0-3); SQUAMOUS EPITHELIAL CELL UR AU 0 /HPF (0-6); WBC, URINE AUTO 1 /HPF (0-3)
[2020-04-14 18:05] LABS: APPEARANCE, URINE CLEAR (CLEAR); BILIRUBIN, URINE AUTO NEGATIVE (NEGATIVE); BLOOD, URINE BLOOD NEGATIVE (NEGATIVE); COLOR, URINE STRAW (YELLOW); GLUCOSE, URINE (UA) AUTO NEGATIVE (NEGATIVE); KETONE, URINE AUTO NEGATIVE (NEGATIVE); LEUKOCYTE ESTERASE, URINE AUTO NEGATIVE (NEGATIVE); NITRITE, URINE AUTO NEGATIVE (NEGATIVE); PROTEIN, URINE AUTO NEGATIVE (NEGATIVE); SPECIFIC GRAVITY URINE AUTO 1.006 (1.002-1.035); UROBILINOGEN, URINE AUTO 0.2 mg/dL (0.0-2.0)
[2020-04-14 18:12] LABS: BASO # 0.1 10^3/uL (0.0-0.2); BASO % 0.7 % (0.0-1.0); EOS # 0.4 10^3/uL (0.0-0.5); EOS % 4.8 % (0.0-3.0); HEMATOCRIT 45.7 % (42.0-52.0); HEMOGLOBIN 13.6 g/dl (13.5-17.5); LYMPH # 2.5 10^3/uL (1.5-5.0); LYMPH % 27.5 % (24.0-44.0); MEAN CORPUSCULAR HEMOGLOBIN 28.1 pg (27.0-33.0); MEAN CORPUSCULAR HGB CONC 29.8 g/dl (32.0-36.5); MEAN CORPUSCULAR VOLUME 94.4 fl (80.0-96.0); MONO % 10.3 % (0.0-5.0); NEUTROPHILS # 5.2 10^3/uL (1.5-8.5); NEUTROPHILS % 56.3 % (36.0-66.0); PLATELET COUNT, AUTOMATED 252 10^3/uL (150-450); RED BLOOD COUNT 4.84 10^6/uL (4.30-6.10); WHITE BLOOD COUNT 9.2 10^3/uL (4.0-10.0)
[2020-04-14 18:39] LABS: ALBUMIN 3.3 GM/DL (3.2-5.2); BILIRUBIN,TOTAL 0.2 MG/DL (0.2-1.0); CALCIUM LEVEL 9.4 MG/DL (8.8-10.2); CHOLESTEROL RISK RATIO 4.621 (<5); CREATININE FOR GFR 1.7 MG/DL (0.70-1.30); GLOMERULAR FILTRATION RATE 43.6 (>49); POTASSIUM SERUM 5.2 MEQ/L (3.5-5.1); TOTAL PROTEIN 7.9 GM/DL (6.4-8.2)
[2020-04-14 18:58] LABS: HEMOGLOBIN A1c 6.2 %
== END ==
LOC: M SFHCPLAZ 13:55
PROVIDERS: ATTEND Physician Assistant Medical
DX: E78.2 Mixed hyperlipidemia (principal); R73.01 Impaired fasting glucose; Z12.5 Encounter for screening for malignant neoplasm of prostate; E61.1 Iron deficiency; Z90.5 Acquired absence of kidney
CPT/HCPCS: 36415; 80053; 80061; 81001; 82550; 82728; 83036; 83540; 85025; G0103

== ENCOUNTER 2020-05-24 19:28 | Inpatient (IN) | payer MEDICARE, MEDICAID ==
[~2020-05-24] VITALS: Ht 170.2 cm; Wt 98.9 kg
[2020-05-24 20:16] LABS: BASO % 0.4 % (0.0-1.0); EOS # 0.2 10^3/uL (0.0-0.5); EOS % 2.5 % (0.0-3.0); HEMOGLOBIN 13.3 g/dl (13.5-17.5); LYMPH # 1.2 10^3/uL (1.5-5.0); LYMPH % 12.4 % (24.0-44.0); MEAN CORPUSCULAR HEMOGLOBIN 28.2 pg (27.0-33.0); MEAN CORPUSCULAR HGB CONC 30.2 g/dl (32.0-36.5); MEAN CORPUSCULAR VOLUME 93.4 fl (80.0-96.0); MONO # 0.4 10^3/uL (0.0-0.8); MONO % 4.3 % (0.0-5.0); NEUTROPHILS # 7.4 10^3/uL (1.5-8.5); NEUTROPHILS % 80.1 % (36.0-66.0); PLATELET COUNT, AUTOMATED 210 10^3/uL (150-450); RED BLOOD COUNT 4.71 10^6/uL (4.30-6.10); WHITE BLOOD COUNT 9.3 10^3/uL (4.0-10.0)
[2020-05-24 20:25] LABS: INR 1.04; PROTHROMBIN TIME 13.8 SECONDS (12.5-14.3)
[2020-05-24] MEDS ORDERED: LISI-538 PO (20:35)
[2020-05-24] MEDS ORDERED: SUCR1TAB56 PO (20:35)
[2020-05-24 20:39] LABS: BLOOD UREA NITROGEN 21 MG/DL (7-18); CALCIUM LEVEL 7.9 MG/DL (8.8-10.2); CARBON DIOXIDE LEVEL 26 MEQ/L (21-32); CHLORIDE LEVEL 105 MEQ/L (98-107); CK-MB VALUE MASS < 1.0 NG/ML (<3.6); CPK CREATINE PHOSPHOKINASE 62 U/L (39-308); CREATININE FOR GFR 2.26 MG/DL (0.70-1.30); GLOMERULAR FILTRATION RATE 31.4 (>49); GLUCOSE, FASTING 153 MG/DL (70-100); MB/CK RELATIVE INDEX 1.61 (< OR =4); POTASSIUM SERUM 4.2 MEQ/L (3.5-5.1); SODIUM LEVEL 140 MEQ/L (136-145); TROPONIN I < 0.02 NG/ML (< 0.10)
--- NOTE | 2020-05-24 20:41 | REPVR ---
PROCEDURE INFORMATION: Exam: CT Head Without Contrast Exam date and time: 05/24/2020 8:10 PM Age: 64 years old Clinical indication: Other: Near syncope; Additional info: Near syncope/headache HX of stroke TECHNIQUE: Imaging protocol: Computed tomography of the head without contrast. Radiation optimization: All CT scans at this facility use at least one of these dose optimization techniques: automated exposure control; mA and/or kV adjustment per patient size (includes targeted exams where dose is matched to clinical indication); or iterative reconstruction. COMPARISON: CT Head without contrast 06/21/2018 2:18 PM FINDINGS: Brain: There is no acute cortical infarction, intracranial hemorrhage or mass. Cystic encephalomalacia is again seen in the left frontal lobe likely due to prior infarction with ex vacuo dilatation of the left lateral ventricle. Cerebral ventricles: The ventricles appear enlarged, but not out of proportion to the degree of parenchymal volume loss. Bones/joints: No acute fracture. Paranasal sinuses: Minimal mucosal disease is seen in the paranasal sinuses without air-fluid levels. Mastoid air cells: The right mastoid is poorly pneumatized. There is no fluid in the right or left middle ear cavity nor within the left mastoid air cells. Soft tissues: Unremarkable. IMPRESSION: No acute intracranial findings. Electronically signed by: Juliet Page On 05/24/2020 20:41:00 PM
[2020-05-24] MEDS ORDERED: NS 1,000 ML IV SCH (21:00)
[2020-05-24] MEDS ORDERED: ATOR40TA75 PO (21:52)
[2020-05-24] MEDS ORDERED: ARNU1INH INH (21:52)
[2020-05-24] MEDS ORDERED: BACL1TAB9 PO (21:52)
[2020-05-24] MEDS ORDERED: ACETAMINOPHEN TAB 650MG DOSE (2X325MG) PO PRN (22:00)
[2020-05-24] MEDS ORDERED: MOM 30ML SUSPENSION UDC PO PRN (22:00)
[2020-05-24] MEDS ORDERED: MAALOX 30 ML SUSP *UDC PO PRN (22:00)
[2020-05-24] MEDS ORDERED: MIRA1POW3 PO (22:12)
[2020-05-24] MEDS ORDERED: LACT20EL PO (22:13)
[2020-05-24 22:28] LABS: PHOSPHORUS LEVEL 2.7 MG/DL (2.5-4.9)
[2020-05-24] MEDS: NS 1,000 ML IV SCH (22:34)
[2020-05-24 22:37] LABS: RSV AMPLIFICATION NEGATIVE (NEGATIVE)
--- NOTE | 2020-05-24 22:39 | HPEPDOC ---
[facility] Medical History & Physical Date of Admission May 24, 2020 Date of Service: May 24, 2020 Primary Care Physician: Georgiana Riddle Attending Physician: ELADIO GROSS MD History and Physical TIME OF SERVICE: 10:45 PM CHIEF COMPLAINT: Near syncope HISTORY OF PRESENT ILLNESS: This 63-year-old gentleman is brought in by EMS after having an episode of dizziness while he was having a bowel movement. The the patient denied falling losing consciousness or hitting his head. He also denied having chest pain, shortness of breath, vomiting or diarrhea prior to the episode. He denied recently having a fever recently eating less than usual or any changes in his medications. 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 HOME MEDICATIONS: Please see below. PHYSICAL EXAMINATION: VITAL SIGNS: Please see below. GEN: well-nourished / well developed/ NAD INTEGUMENT: not flushed/ not jaundice HEENT: Clear, anicteric/facemask in place covering nose and mouth CVS: RRR/NMRG/ no JVP / radial pulses intact /trace lower extremity edema LUNGS: no coughing / lungs are clear to auscultation bilaterally on room air ABDOMEN: Contour (obese) MSK/EXTREMITIES: NCAT NEURO: He has expressive aphasia. Strength is 5 out of 5 at the left and right upper extremity / He is unable to lift his right arm off of the bed but is able to overcome gravity for a few seconds while trying to lift the right leg off of the bed PSYCH: alert and oriented / able to understand and follow commands LABORATORY DATA: See below. IMAGING: CT head "No acute intracranial findings. " MICROBIOLOGY: Please see below. ASSESSMENT: Mr. Venegas is a 64-year-old with a history of CVA, expressive aphasia, right- sided hemiparesis, seizure disorder, HFpEF COPD, dyslipidemia, hypertension, anxiety, iron deficiency anemia & CKD 3,who presented for evaluation of dizziness and was found to have PARKER on CKD and hypotension PLAN: 1. Presyncope syncope Possibly due to hypotension Plan: Admit to medical floor/telemetry/IV fluids/frequent neuro checks 2. PARKER on CKD 3 Plan: monitor UOP / IVF / f/u renal panel, UA, Ulytes for FENa or FEUrea, PTH, vitamin D, and phosphorus / renal US / hold lisinopril and Protonix 3. Hypotension He has a hx of Chronic Hypertension Plan: Hold lisinopril / IV fluids 4. 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 Seizure disorder Plan: levetiracetam 6. Chronic HFpEF Euvolemic 7. COPD Plan: Albuterol, fluticasone 8. Anxiety / Depression Plan: Citalopram 9. Iron deficiency anemia Reviewed recent iron panel Plan: Outpatient GI referral for colonoscopy if not ready done/ferrous sulfate 10. Class I obesity Plan: f/u A1C DVT PROPHYLAXIS: Heparin DISPOSITION: home after more than 2 midnight's stay Vital Signs Vital Signs Date Time Temp Pulse Resp B/P (MAP) Pulse Ox O2 Delivery O2 Flow Rate FiO2 05/24/20 21:04 66 99/55 (70) 84 99/56 (70) 83 107/60 (76) 05/24/20 20:28 18 95 Room Air 05/24/20 19:35 97.9 Laboratory Data Labs 24H Laboratory Tests 2 05/24/20 19:56: Bedside Glucose (Misc Panel) 145H 05/24/20 19:58: Prothrombin Time 13.8, Prothromb Time International Ratio 1.04, Anion Gap 9, Glomerular Filtration Rate 31.4L, Calcium Level 7.9L, Phosphorus Level 2.7, To siddhartha Creatine Kinase 62, Creatine Kinase MB < 1.0, Creatine Kinase MB Relative Index 1.61, Troponin I < 0.02, Thyroid Stimulating Hormone (TSH) 1.920 05/24/20 19:59: Immature Granulocyte % (Auto) 0.3, Neutrophils (%) (Auto) 80.1H, Lymphocytes (%) (Auto) 12.4L, Monocytes (%) (Auto) 4.3, Eosinophils (%) (Auto) 2.5, Basophils (%) (Auto) 0.4, Neutrophils # (Auto) 7.4, Lymphocytes # (Auto) 1.2L, Monocytes # (Auto) 0.4, Eosinophils # (Auto) 0.2, Basophils # (Auto) 0.0, Nucleated Red Blood Cells % (auto) 0.0 05/24/20 21:51: Coronavirus (COVID-19)(PCR) NEGATIVE, Influenza Type A (RT-PCR) NEGATIVE, Influenza Type B (RT-PCR) NEGATIVE, Respiratory Syncytial Virus (PCR) NEGATIVE CBC/BMP Laboratory Tests 05/24/20 19:58 05/24/20 19:59 Home Medications Scheduled Aspirin (Aspirin EC) 81 Mg Tab, 81 MG PO DAILY Atorvastatin Calcium (Atorvastatin Calcium) 40 Mg Tablet, 40 MG PO QHS Baclofen (Baclofen) 20 Mg Tablet, 20 MG PO Q8H Citalopram Hydrobromide (Citalopram HBr) 40 Mg Tab, 40 MG PO DAILY Docusate Sodium (Colace) 100 Mg Cap, 100 MG PO DAILY Fluticasone Furoate (Arnuity Ellipta) 100 Mcg Blst.w.dev, 1 PUFF INH DAILY Lactulose (Lactulose) 10 Gm/15 Ml Solution, 15 ML PO DAILY Levetiracetam (Keppra) 500 Mg Tab, 500 MG PO BID Lisinopril (Lisinopril) 20 Mg Tablet, 20 MG PO DAILY Pantoprazole Sodium (Pantoprazole Sodium) 40 Mg Tab, 40 MG PO DAILY Sucralfate (Sucralfate) 1 Gm Tablet, 1 GM PO BID Scheduled PRN Acetaminophen (Acetaminophen) 325 Mg Tab, 650 MG PO Q4HP PRN for MILD PAIN OR FEVER Albuterol Sulfate (Proair Hfa) 108 Mcg/Act Aer, 2 PUFF INH Q4HP PRN for WHEEZING Polyethylene Glycol 3350 (Miralax) 17 Gm Powd.pack, 17 GM PO DAILY PRN for CONSTIPATION Allergies Coded Allergies: No Known Allergies (Unverified , 09/04/17) A-FIB/CHADSVASC A-FIB History Current/History of A-Fib/PAF?: No Current PO Anticoag Therapy: No ELADIO GROSS MD May 24, 2020 22:39
[2020-05-25] MEDS: SUCRALFATE 1 GM TAB PO SCH ×3 (01:00→20:05)
[2020-05-25] MEDS: ATORVASTATIN 20 MG TAB PO SCH ×2 (01:00→20:05)
[2020-05-25] MEDS ORDERED: ALBUTEROL 90 MCG/ACT 8GM HFA INHALER INH PRN (01:00)
[2020-05-25] MEDS ORDERED: MIRALAX *UNIT DOSE* 17GM PACKET PO PRN (01:00)
[2020-05-25] MEDS: FLUTICASONE HFA 110 MCG 12 GM INHALER (FLOVENT) INH SCH ×3 (01:00→20:48)
[2020-05-25 01:03] VITALS: BP 133/85
[2020-05-25] MEDS: levETIRAcetam 250MG TABLET (KEPPRA) PO SCH ×3 (01:49→20:05)
[2020-05-25] MEDS: HEPARIN SOD (PORCINE) 5000UNITS/ML 1ML VIAL/SYRINGE SC SCH ×3 (05:31→21:43)
[2020-05-25] MEDS: BACLOFEN 10 MG TAB PO SCH ×3 (05:31→21:43)
--- NOTE | 2020-05-25 05:41 | ECGEPIP ---
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
[2020-05-25 06:00] VITALS: BP 145/69
[2020-05-25 06:41] LABS: HEMATOCRIT 41.9 % (42.0-52.0); HEMOGLOBIN 12.4 g/dl (13.5-17.5); MEAN CORPUSCULAR HEMOGLOBIN 28.1 pg (27.0-33.0); MEAN CORPUSCULAR HGB CONC 29.6 g/dl (32.0-36.5); MEAN CORPUSCULAR VOLUME 94.8 fl (80.0-96.0); PLATELET COUNT, AUTOMATED 220 10^3/uL (150-450); RED BLOOD COUNT 4.42 10^6/uL (4.30-6.10); WHITE BLOOD COUNT 9.6 10^3/uL (4.0-10.0)
[2020-05-25 07:02] LABS: CALCIUM LEVEL 8.2 MG/DL (8.8-10.2); CREATININE FOR GFR 2.04 MG/DL (0.70-1.30); GLOMERULAR FILTRATION RATE 35.3 (>49); POTASSIUM SERUM 4.9 MEQ/L (3.5-5.1)
--- NOTE | 2020-05-25 07:02 | REPVR ---
PROCEDURE INFORMATION: Exam: US Retroperitoneal Limited, Kidneys Exam date and time: 05/25/2020 6:06 AM Age: 64 years old Clinical indication: Abnormal findings; Abnormal lab test; Abnormal kidney function lab tests; Prior surgery; Surgery date: 6+ months; Surgery type: Right nephrectomy 2017; Additional info: Get TECHNIQUE: Imaging protocol: Real-time ultrasound of the retroperitoneum with image documentation. Examination was focused on the kidneys. COMPARISON: Abdomen, limited US 01/15/2019 3:21 AM FINDINGS: Right kidney: Status post right nephrectomy. Left kidney: Left kidney measures 12.8 cm in length. No renal mass, calculus, or hydronephrosis. Bladder: Unremarkable bladder. IMPRESSION: Unremarkable sonographic appearance of the left kidney and bladder. Electronically signed by: Jhony Pardo On 05/25/2020 07:02:48 AM
[2020-05-25] MEDS: DOCUSATE SODIUM 100MG CAPSULE PO SCH (09:01)
[2020-05-25] MEDS: ASPIRIN 81 MG ENTERIC TAB PO SCH (09:01)
[2020-05-25] MEDS: LACTULOSE 20 GM/30 ML SYRUP UD PO SCH (09:01)
[2020-05-25] MEDS: FERROUS SULFATE 300MG/5ML UDC LIQUID PO SCH (09:01)
[2020-05-25] MEDS: CitaloPRAM (CeleXA) 20 MG TAB PO SCH (09:01)
[2020-05-25] MEDS: NS 1,000 ML IV SCH ×2 (09:01→18:24)
[2020-05-25 13:24] LABS: PTH INTACT 101.1 PG/ML (18.5-88.0); TOTAL 25(OH) VITAMIN D 11.9 NG/ML (30.0-100.0)
[2020-05-25 14:00] VITALS: BP 113/66
[2020-05-25 20:12] LABS: APPEARANCE, URINE CLEAR (CLEAR); BACTERIA, URINE AUTO NEGATIVE (NEGATIVE); BILIRUBIN, URINE AUTO NEGATIVE (NEGATIVE); BLOOD, URINE BLOOD NEGATIVE (NEGATIVE); COLOR, URINE YELLOW (YELLOW); GLUCOSE, URINE (UA) AUTO NEGATIVE (NEGATIVE); KETONE, URINE AUTO NEGATIVE (NEGATIVE); LEUKOCYTE ESTERASE, URINE AUTO NEGATIVE (NEGATIVE); MUCUS, URINE SMALL (NEGATIVE); NITRITE, URINE AUTO NEGATIVE (NEGATIVE); PROTEIN, URINE AUTO NEGATIVE (NEGATIVE); RBC, URINE AUTO 0 /HPF (0-3); SPECIFIC GRAVITY URINE AUTO 1.013 (1.002-1.035); SQUAMOUS EPITHELIAL CELL UR AU 0 /HPF (0-6); UROBILINOGEN, URINE AUTO 0.2 mg/dL (0.0-2.0); WBC, URINE AUTO 0 /HPF (0-3)
--- NOTE | 2020-05-25 20:52 | IPNPDOC ---
Subjective Date Seen The patient was seen on 05/25/20. Subjective Chief Complaint/HPI Mr. Cornelius is a 64 year old male with COPD, CKD 3, HFpEF, and large left CVA with residual expressive aphasia and right sided hemiparesis who is here for dizziness while having a BM and found to have PARKER on CKD. This morning, he denies lightheadedness, chest pain, dyspnea, abdominal pain, or dysuria. Objective Physical Examination General Exam: Positive: Cooperative Eye Exam: Negative: Sclera icteric Neck Exam: Positive: Supple Chest Exam: Positive: Clear to auscultation Heart Exam: Positive: Rate Normal, Regular Rhythm Abdomen Exam: Positive: Normal bowel sounds, Other (distended); Negative: Tenderness Extremity Exam: Positive: Edema Skin Exam: Positive: Nl turgor and temperature Neuro Exam: Negative: Normal Speech (expressive aphasia, sometimes writes response) Psych Exam: Negative: Anxiety Assessment /Plan Assessment Mr. Cornelius is a 64 year old male with COPD, CKD 3, HFpEF, and large left CVA with residual expressive aphasia and right sided hemiparesis who is here for presyncope and PARKER on CKD. Most likely secondary to dehydration. He will be given IVF and monitored on tele. Echocardiogram will be ordered to complete syncope work up. Plan/VTE VTE Prophylaxis Ordered?: Yes Plan 1. PARKER on CKD -Baseline creatinine around 1.6 to 1.7 -Creatinine on admission was 2.26 -Most likely secondary to dehydration (pre-renal) -IVF, supportive care, and avoid nephrotic agents 2. Pre-syncope -Dehydration vs vasovagal as patient was have a BM -Monitor on tele -Echocardiogram to complete work up 3. Hypotension/Hypertension -On admission, patient was hypotensive -Improved today -Has not needed lisinopril. Continue to hold lisinopril until needed 4. CHF -Documented history of CHF -Echocardiogram 03/2014 demonstrated EF of 65-70% -Stable -Started lisinopril when appropriate 5. COPD -Stable -Continue inhalers 6. History of large left frontal, temporal, parietal love CVA with residual expressive aphasia and right-sided hemiparesis -Continue aspirin and atorvastatin 7. Seizure disorder -Continue Levetiracetam 8. Anxiety/Depression -Continue Citalopram 9. DVT ppx -Heparin Disposition: pending improvement in renal function and echocardiogram (for syncope workup) VS, I&O, 24H, Heather Vital Signs/I&O Vital Signs Date Time Temp Pulse Resp B/P (MAP) Pulse Ox O2 Delivery O2 Flow Rate FiO2 05/25/20 14:00 99.0 67 17 113/66 (82) 94 Room Air I&O- Last 24 Hours up to 6 AM 05/25/20 06:00 Intake Total 900 ml Output Total 350 ml Balance 550 ml Laboratory Data 24H LABS Laboratory Tests 2 05/24/20 19:56: Bedside Glucose (Misc Panel) 145H 05/24/20 19:58: Prothrombin Time 13.8, Prothromb Time International Ratio 1.04, Anion Gap 9, Glomerular Filtration Rate 31.4L, Calcium Level 7.9L, Phosphorus Level 2.7, Total Creatine Kinase 62, Creatine Kinase MB < 1.0, Creatine Kinase MB Relative Index 1.61, Troponin I < 0.02, 25-Hydroxy Vitamin D Total 11.9L, Thyroid Stimulating Hormone (TSH) 1.920, Parathyroid Hormone (Intact) 101.1H 05/24/20 19:59: Immature Granulocyte % (Auto) 0.3, Neutrophils (%) (Auto) 80.1H, Lymphocytes (%) (Auto) 12.4L, Monocytes (%) (Auto) 4.3, Eosinophils (%) (Auto) 2.5, Basophils (%) (Auto) 0.4, Neutrophils # (Auto) 7.4, Lymphocytes # (Auto) 1.2L, Monocytes # (Auto) 0.4, Eosinophils # (Auto) 0.2, Basophils # (Auto) 0.0, Nucleated Red Blood Cells % (auto) 0.0 05/24/20 21:51: Coronavirus (COVID-19)(PCR) NEGATIVE, Influenza Type A (RT-PCR) NEGATIVE, Influenza Type B (RT-PCR) NEGATIVE, Respiratory Syncytial Virus (PCR) NEGATIVE 05/25/20 06:28: Nucleated Red Blood Cells % (auto) 0.0, Anion Gap 4L, Glomerular Filtration Rate 35.3L, Estimated Mean Plasma Glucose 126H, Hemoglobin A1c 6.0, Calcium Level 8. 2L CBC/BMP Laboratory Tests 05/24/20 19:58 05/24/20 19:59 05/25/20 06:28 HA NEWELL DO May 25, 2020 17:25
[2020-05-25 22:00] VITALS: BP 139/66
[2020-05-26] MEDS: NS 1,000 ML IV SCH (04:00)
[2020-05-26] MEDS: BACLOFEN 10 MG TAB PO SCH (05:35)
[2020-05-26] MEDS: HEPARIN SOD (PORCINE) 5000UNITS/ML 1ML VIAL/SYRINGE SC SCH (05:35)
[2020-05-26 06:00] VITALS: BP 149/87
[2020-05-26 06:30] LABS: HEMATOCRIT 40.6 % (42.0-52.0); HEMOGLOBIN 12.5 g/dl (13.5-17.5); MEAN CORPUSCULAR HEMOGLOBIN 28.9 pg (27.0-33.0); MEAN CORPUSCULAR HGB CONC 30.8 g/dl (32.0-36.5); PLATELET COUNT, AUTOMATED 199 10^3/uL (150-450); RED BLOOD COUNT 4.32 10^6/uL (4.30-6.10)
[2020-05-26 06:59] LABS: CALCIUM LEVEL 8.1 MG/DL (8.8-10.2); CREATININE FOR GFR 1.66 MG/DL (0.70-1.30); GLOMERULAR FILTRATION RATE 44.8 (>49); POTASSIUM SERUM 4.7 MEQ/L (3.5-5.1)
[2020-05-26] MEDS: FLUTICASONE HFA 110 MCG 12 GM INHALER (FLOVENT) INH SCH (07:29)
[2020-05-26] MEDS: LACTULOSE 20 GM/30 ML SYRUP UD PO SCH ×2 (09:00→09:45)
[2020-05-26] MEDS: CitaloPRAM (CeleXA) 20 MG TAB PO SCH (09:45)
[2020-05-26] MEDS: DOCUSATE SODIUM 100MG CAPSULE PO SCH (09:45)
[2020-05-26] MEDS: SUCRALFATE 1 GM TAB PO SCH (09:45)
[2020-05-26] MEDS: levETIRAcetam 250MG TABLET (KEPPRA) PO SCH (09:45)
[2020-05-26] MEDS: ASPIRIN 81 MG ENTERIC TAB PO SCH (09:45)
[2020-05-26] MEDS: FERROUS SULFATE 300MG/5ML UDC LIQUID PO SCH (09:45)
--- NOTE | 2020-05-26 12:24 | DS.PDOC ---
Discharge Summary General Date of Admission May 24, 2020 at 21:51 Date of Discharge 05/26/2020 Attending Physician: JULIANA SCOTT MD Discharge Summary PROCEDURES PERFORMED DURING STAY: None ADMITTING DIAGNOSES: 1. GET on CKD 2. Dehydration 3. 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 History of Seizure disorder Chronic HFpEF COPD History of Atrial septal aneurysm Dyslipidemia Chronic Hypertension Anxiety Depression History of Iron deficiency anemia Chronic headaches History of renal cancer s/p a right partial nephrectomy COMPLICATIONS/CHIEF COMPLAINT: Get, Hypotension,Pre-Syncope. HISTORY OF PRESENT ILLNESS: 63-year-old gentleman who was brought in by EMS after having an episode of dizziness while he was having a bowel movement at home. In the ED, he denied falling, losing consciousness or hitting his head. He also denied having chest pain, shortness of breath, vomiting or diarrhea prior to the episode. He denied recently having a fever recently eating less than usual or any changes in his medications. HOSPITAL COURSE: In the ED, he was noted to be hypotensive and with an GET on baseline CKD3. He received IV fluids with improvement of his BP and resolution of his GET back to baseline. He had a renal US that showed a normal solitary L kidney as he is s/p R nephrectomy, and had a CT head without acute pathology. He worked with PT/OT and was eventually cleared for safe discharge home and encouraged to drink to thirst and hydrate often. Of note, he was on telemetry while inpatient without any noted pathological activity, while EKG was non ischemic without dysrhythmias and cardiac markers and TSH were wnl. He is now being discharged home to follow with his PCP within 7-10d. DISCHARGE MEDICATIONS: Please see below. ALLERGIES: Please see below. PHYSICAL EXAMINATION ON DISCHARGE: VITAL SIGNS: Please see below. General: NAD Eyes: Sclera icteric, non injected Neck: Supple Chest: Clear to auscultation Heart: Rate Normal, Regular Rhythm, no mrg Abdomen: Normal bowel sounds, NTND, soft Extremities: no LE edema, WWP Skin: Nl turgor and temperature Neuro: Normal Speech, did not notice his previously noted expressive aphasia, he reports that it occurs sometimes but not at all times. Psych Exam: AOx3, normal mood and affect. LABORATORY DATA: Please see below. IMAGING: Renal US: Right kidney: Status post right nephrectomy. Left kidney: Left kidney measures 12.8 cm in length. No renal mass, calculus, or hydronephrosis. Bladder: Unremarkable bladder. IMPRESSION: Unremarkable sonographic appearance of the left kidney and bladder. CT head: No acute intracranial abnormalities PROGNOSIS: Good ACTIVITY: As tolerated DIET: Regular diet DISCHARGE PLAN: Home with PCP follow up DISPOSITION: Home DISCHARGE INSTRUCTIONS: 1. Home with PCP follow up ITEMS TO FOLLOWUP ON ON OUTPATIENT: 1. Dehydration with presyncope DISCHARGE CONDITION: Stable TIME SPENT ON DISCHARGE: 44 minutes. Vital Signs/I&Os Vital Signs Date Time Temp Pulse Resp B/P (MAP) Pulse Ox O2 Delivery O2 Flow Rate FiO2 05/26/20 06:00 98.8 67 20 149/87 (107) 95 Room Air I&O- Last 24 Hours up to 6 AM 05/26/20 05:59 Intake Total 980 ml Output Total 575 ml Balance 405 ml Laboratory Data Labs 24H Laboratory Tests 2 05/25/20 19:25: Urine Color YELLOW, Urine Appearance CLEAR, Urine pH 5.0, Urine Specific [place] 1.013, Urine Protein NEGATIVE, Urine Glucose (Auto)(UA) NEGATIVE, Urine Ketones (Auto) NEGATIVE, Urine Blood NEGATIVE, Urine Nitrite NEGATIVE, Urine Bilirubin NEGATIVE, Urine Urobilinogen 0.2, Urine Leukocyte Esterase (Auto) NEGATIVE, Urine WBC (Auto) 0, Urine RBC (Auto) 0, Urine Hyaline Casts (Auto) 0, Urine Bacteria (Auto) NEGATIVE, Urine Squamous Epithelial Cells 0, Urine Mucus (Auto) SMALL, Urine Sperm (Auto) 05/26/20 05:58: Nucleated Red Blood Cells % (auto) 0.0, Anion Gap 2L, Glomerular Filtration Rate 44.8L, Calcium Level 8.1L CBC/BMP Laboratory Tests 05/26/20 05:58 Discharge Medications Scheduled Aspirin (Aspirin EC) 81 Mg Tab, 81 MG PO DAILY, (Reported) Atorvastatin Calcium (Atorvastatin Calcium) 40 Mg Tablet, 40 MG PO QHS, (Reported) Baclofen (Baclofen) 20 Mg Tablet, 20 MG PO Q8H, (Reported) Citalopram Hydrobromide (Citalopram HBr) 40 Mg Tab, 40 MG PO DAILY, (Reported) Docusate Sodium (Colace) 100 Mg Cap, 100 MG PO DAILY, (Reported) Fluticasone Furoate (Arnuity Ellipta) 100 Mcg Blst.w.dev, 1 PUFF INH DAILY, (Reported) Lactulose (Lactulose) 10 Gm/15 Ml Solution, 15 ML PO DAILY, (Reported) Levetiracetam (Keppra) 500 Mg Tab, 500 MG PO BID, (Reported) Lisinopril (Lisinopril) 20 Mg Tablet, 20 MG PO DAILY, (Reported) Pantoprazole Sodium (Pantoprazole Sodium) 40 Mg Tab, 40 MG PO DAILY, (Reported) Sucralfate (Sucralfate) 1 Gm Tablet, 1 GM PO BID, (Reported) Scheduled PRN Acetaminophen (Acetaminophen) 325 Mg Tab, 650 MG PO Q4HP PRN for MILD PAIN OR FEVER, (Reported) Albuterol Sulfate (Proair Hfa) 108 Mcg/Act Aer, 2 PUFF INH Q4HP PRN for WHEEZING, (Reported) Polyethylene Glycol 3350 (Miralax) 17 Gm Powd.pack, 17 GM PO DAILY PRN for CONSTIPATION, (Reported) Allergies Coded Allergies: No Known Allergies (Unverified , 09/04/17) JULIANA SCOTT MD May 26, 2020 12:24
== END 2020-05-26 13:24 | disposition home or self-care (01) | DRG 315 ==
LOC: M ED 19:28 → EDBD 19:28 → M ED INP 21:51 → ENRESERV 22:35 → M MSPAV 05-25 01:03
PROVIDERS: ADMIT Internal Medicine; ATTEND Internal Medicine
DX: I95.89 Other hypotension (principal); I69.351 Hemiplegia and hemiparesis following cerebral infarction affecting right dominant side; I50.32 Chronic diastolic (congestive) heart failure; I13.0 Hypertensive heart and chronic kidney disease with heart failure and stage 1 through stage 4 chronic kidney disease, or unspecified chronic kidney disease; N17.9 Acute kidney failure, unspecified; I69.320 Aphasia following cerebral infarction; G40.909 Epilepsy, unspecified, not intractable, without status epilepticus; J44.9 Chronic obstructive pulmonary disease, unspecified; E78.5 Hyperlipidemia, unspecified; F41.9 Anxiety disorder, unspecified; F32.9 Major depressive disorder, single episode, unspecified; D50.9 Iron deficiency anemia, unspecified; E86.0 Dehydration; N18.30 Chronic kidney disease, stage 3 unspecified; R51.9 Headache, unspecified; Z85.528 Personal history of other malignant neoplasm of kidney; Z90.5 Acquired absence of kidney; Z90.49 Acquired absence of other specified parts of digestive tract; Z98.41 Cataract extraction status, right eye; Z87.891 Personal history of nicotine dependence; E66.9 Obesity, unspecified; Z79.82 Long term (current) use of aspirin; Z79.899 Other long term (current) drug therapy; Z68.33 Body mass index [BMI] 33.0-33.9, adult; Z20.828 Contact with and (suspected) exposure to other viral communicable diseases

== ENCOUNTER → 2020-06-02 | Outpatient (REF) | payer MEDICARE, MEDICAID ==
[~2020-06-02] MED LIST changes: +ARNU1INH INH; +ATOR40TA75 PO; +BACL1TAB9 PO; -LISI-542 PO; +LISI-898 PO; +LISI20TA33 PO; +MIRA1POW3 PO; +SUCR1TAB56 PO
[2020-06-02 17:17] LABS: BASO % 0.4 % (0.0-1.0); EOS # 0.4 10^3/uL (0.0-0.5); EOS % 3.8 % (0.0-3.0); HEMOGLOBIN 13.2 g/dl (13.5-17.5); LYMPH # 2.5 10^3/uL (1.5-5.0); LYMPH % 26.7 % (24.0-44.0); MEAN CORPUSCULAR HEMOGLOBIN 28.3 pg (27.0-33.0); MEAN CORPUSCULAR VOLUME 94.4 fl (80.0-96.0); MONO % 10.2 % (0.0-5.0); NEUTROPHILS # 5.6 10^3/uL (1.5-8.5); NEUTROPHILS % 58.8 % (36.0-66.0); PLATELET COUNT, AUTOMATED 241 10^3/uL (150-450); RED BLOOD COUNT 4.66 10^6/uL (4.30-6.10); WHITE BLOOD COUNT 9.5 10^3/uL (4.0-10.0)
[2020-06-02 17:26] LABS: ALBUMIN 3.2 GM/DL (3.2-5.2); BILIRUBIN,TOTAL 0.3 MG/DL (0.2-1.0); CALCIUM LEVEL 9.1 MG/DL (8.8-10.2); CREATININE FOR GFR 1.78 MG/DL (0.70-1.30); GLOMERULAR FILTRATION RATE 41.3 (>49); POTASSIUM SERUM 4.5 MEQ/L (3.5-5.1); TOTAL PROTEIN 7.9 GM/DL (6.4-8.2)
== END ==
LOC: M SFHCPLAZ 14:48
PROVIDERS: ATTEND Physician Assistant Medical
DX: N17.9 Acute kidney failure, unspecified (principal)
CPT/HCPCS: 36415; 80053; 85025; G0463

== ENCOUNTER → 2020-08-11 | Outpatient (REF) | payer MEDICARE, MEDICAID ==
[2020-08-11 16:09] LABS: BASO # 0.1 10^3/uL (0.0-0.2); BASO % 0.7 % (0.0-1.0); EOS # 0.4 10^3/uL (0.0-0.5); EOS % 4.4 % (0.0-3.0); HEMATOCRIT 45.3 % (42.0-52.0); HEMOGLOBIN 13.4 g/dl (13.5-17.5); LYMPH # 1.8 10^3/uL (1.5-5.0); LYMPH % 20.2 % (24.0-44.0); MEAN CORPUSCULAR HEMOGLOBIN 27.7 pg (27.0-33.0); MEAN CORPUSCULAR HGB CONC 29.6 g/dl (32.0-36.5); MEAN CORPUSCULAR VOLUME 93.8 fl (80.0-96.0); MONO # 0.7 10^3/uL (0.0-0.8); MONO % 7.5 % (2.0-8.0); NEUTROPHILS # 5.8 10^3/uL (1.5-8.5); NEUTROPHILS % 66.6 % (36.0-66.0); PLATELET COUNT, AUTOMATED 233 10^3/uL (150-450); RED BLOOD COUNT 4.83 10^6/uL (4.30-6.10); WHITE BLOOD COUNT 8.7 10^3/uL (4.0-10.0)
[2020-08-11 16:23] LABS: HEMATOCRIT 45.2 % (42.0-52.0)
[2020-08-11 16:37] LABS: ALBUMIN 3.1 GM/DL (3.2-5.2); BILIRUBIN,TOTAL 0.3 MG/DL (0.2-1.0); CALCIUM LEVEL 9.3 MG/DL (8.8-10.2); CREATININE FOR GFR 1.69 MG/DL (0.70-1.30); GLOMERULAR FILTRATION RATE 43.7 (>49); POTASSIUM SERUM 4.5 MEQ/L (3.5-5.1); TOTAL PROTEIN 7.8 GM/DL (6.4-8.2)
== END ==
LOC: M SFHCPLAZ 13:39
PROVIDERS: ATTEND Physician Assistant Medical
DX: D50.8 Other iron deficiency anemias (principal); I12.9 Hypertensive chronic kidney disease with stage 1 through stage 4 chronic kidney disease, or unspecified chronic kidney disease; N18.9 Chronic kidney disease, unspecified
CPT/HCPCS: 36415; 80053; 82728; 82747; 83540; 85025; G0463

== ENCOUNTER → 2020-12-08 | Outpatient (CLI) | payer OTHER, MEDICAID ==
[2020-12-08 17:58] LABS: BASO # 0.1 10^3/uL (0.0-0.2); BASO % 0.6 % (0.0-1.0); EOS # 0.3 10^3/uL (0.0-0.5); EOS % 3.5 % (0.0-3.0); HEMATOCRIT 46.8 % (42.0-52.0); LYMPH # 1.5 10^3/uL (1.5-5.0); LYMPH % 17.8 % (24.0-44.0); MEAN CORPUSCULAR HEMOGLOBIN 27.3 pg (27.0-33.0); MEAN CORPUSCULAR HGB CONC 29.9 g/dl (32.0-36.5); MEAN CORPUSCULAR VOLUME 91.2 fl (80.0-96.0); MONO # 0.8 10^3/uL (0.0-0.8); MONO % 9.2 % (2.0-8.0); NEUTROPHILS # 5.9 10^3/uL (1.5-8.5); NEUTROPHILS % 68.6 % (36.0-66.0); PLATELET COUNT, AUTOMATED 283 10^3/uL (150-450); RED BLOOD COUNT 5.13 10^6/uL (4.30-6.10); WHITE BLOOD COUNT 8.6 10^3/uL (4.0-10.0)
[2020-12-08 18:31] LABS: ALBUMIN 3.1 GM/DL (3.2-5.2); BILIRUBIN,TOTAL 0.3 MG/DL (0.2-1.0); CALCIUM LEVEL 9.4 MG/DL (8.8-10.2); CHOLESTEROL RISK RATIO 8.527 (<5); CREATININE FOR GFR 1.64 MG/DL (0.70-1.30); GLOMERULAR FILTRATION RATE 45.3 (>49); TOTAL PROTEIN 8.3 GM/DL (6.4-8.2)
[2020-12-08 18:47] LABS: HEMOGLOBIN A1c 6.2 %
== END ==
LOC: M PLALAB 14:38
PROVIDERS: ATTEND Physician Assistant Medical
DX: I69.321 Dysphasia following cerebral infarction (principal); J02.9 Acute pharyngitis, unspecified; E61.1 Iron deficiency; R73.01 Impaired fasting glucose; E78.2 Mixed hyperlipidemia
CPT/HCPCS: 36415; 80053; 80061; 82550; 83036; 85025; 87880; G0463

== ENCOUNTER → 2021-05-17 | Outpatient (CLI) | payer OTHER, MEDICAID ==
[~2021-05-17] MED LIST changes: -CITA40TA4 PO; +CITA40TA7 PO; -LISI-898 PO; +LISI5TAB11 PO
[2021-05-17 15:07] LABS: BASO # 0.1 10^3/uL (0.0-0.2); BASO % 0.6 % (0.0-1.0); EOS # 0.4 10^3/uL (0.0-0.5); EOS % 3.8 % (0.0-3.0); HEMOGLOBIN 14.7 g/dl (13.5-17.5); LYMPH # 2.7 10^3/uL (1.5-5.0); LYMPH % 26.9 % (24.0-44.0); MEAN CORPUSCULAR HEMOGLOBIN 27.4 pg (27.0-33.0); MEAN CORPUSCULAR VOLUME 91.4 fl (80.0-96.0); MONO # 0.9 10^3/uL (0.0-0.8); MONO % 9.4 % (2.0-8.0); NEUTROPHILS # 5.8 10^3/uL (1.5-8.5); NEUTROPHILS % 58.8 % (36.0-66.0); PLATELET COUNT, AUTOMATED 293 10^3/uL (150-450); RED BLOOD COUNT 5.36 10^6/uL (4.30-6.10); WHITE BLOOD COUNT 9.9 10^3/uL (4.0-10.0)
[2021-05-17 16:31] LABS: ALBUMIN 3.2 GM/DL (3.2-5.2); BILIRUBIN,TOTAL 0.2 MG/DL (0.2-1.0); CALCIUM LEVEL 9.4 MG/DL (8.8-10.2); CREATININE FOR GFR 1.63 MG/DL (0.70-1.30); GLOMERULAR FILTRATION RATE 45.6 (>49); POTASSIUM SERUM 4.4 MEQ/L (3.5-5.1); TOTAL PROTEIN 8.4 GM/DL (6.4-8.2)
[2021-05-17 20:38] LABS: HEMOGLOBIN A1c 6.2 %
== END ==
LOC: M PLALAB 13:13
PROVIDERS: ATTEND Physician Assistant Medical
DX: J44.9 Chronic obstructive pulmonary disease, unspecified (principal); I69.359 Hemiplegia and hemiparesis following cerebral infarction affecting unspecified side; C64.9 Malignant neoplasm of unspecified kidney, except renal pelvis; R73.01 Impaired fasting glucose; Z12.5 Encounter for screening for malignant neoplasm of prostate
CPT/HCPCS: 36415; 80053; 83036; 85025; G0103; G0463

== ENCOUNTER → 2021-10-13 | Outpatient (CLI) | payer OTHER, MEDICAID ==
[2021-10-13 13:55] LABS: BASO # 0.1 10^3/uL (0.0-0.2); BASO % 0.6 % (0.0-1.0); EOS # 0.5 10^3/uL (0.0-0.5); EOS % 5.3 % (0.0-3.0); HEMOGLOBIN 13.9 g/dl (13.5-17.5); LYMPH # 2.3 10^3/uL (1.5-5.0); LYMPH % 26.8 % (24.0-44.0); MEAN CORPUSCULAR HEMOGLOBIN 28.5 pg (27.0-33.0); MEAN CORPUSCULAR HGB CONC 30.9 g/dl (32.0-36.5); MEAN CORPUSCULAR VOLUME 92.2 fl (80.0-96.0); MONO # 0.7 10^3/uL (0.0-0.8); MONO % 8.4 % (2.0-8.0); NEUTROPHILS # 5.1 10^3/uL (1.5-8.5); NEUTROPHILS % 58.6 % (36.0-66.0); PLATELET COUNT, AUTOMATED 276 10^3/uL (150-450); RED BLOOD COUNT 4.88 10^6/uL (4.30-6.10); WHITE BLOOD COUNT 8.7 10^3/uL (4.0-10.0)
[2021-10-13 14:03] LABS: ALBUMIN 3.1 GM/DL (3.2-5.2); BILIRUBIN,TOTAL 0.2 MG/DL (0.2-1.0); CALCIUM LEVEL 9.6 MG/DL (8.8-10.2); CHOLESTEROL RISK RATIO 4.512 (<5); CREATININE FOR GFR 1.61 MG/DL (0.70-1.30); GLOMERULAR FILTRATION RATE 46.1 (>49); TOTAL PROTEIN 8.1 GM/DL (6.4-8.2)
[2021-10-13 14:19] LABS: HEMOGLOBIN A1c 6.4 %
== END ==
LOC: M PLALAB 09:37
PROVIDERS: ATTEND Physician Assistant Medical
DX: R73.01 Impaired fasting glucose (principal); E78.00 Pure hypercholesterolemia, unspecified; Z12.5 Encounter for screening for malignant neoplasm of prostate; D50.9 Iron deficiency anemia, unspecified
CPT/HCPCS: 36415; 80053; 80061; 82550; 82728; 83036; 83540; 85025; G0103

== ENCOUNTER 2021-10-28 13:12 | Emergency (ER) | payer OTHER, MEDICAID ==
[~2021-10-28] VITALS: Ht 170.2 cm; Wt 101.6 kg
[2021-10-28 13:26] VITALS: BP 114/69
[2021-10-28] MEDS ORDERED: NS 1,000 ML IV ONE (13:40)
[2021-10-28 15:00] LABS: BASO % 0.3 % (0.0-1.0); EOS # 0.1 10^3/uL (0.0-0.5); EOS % 0.8 % (0.0-3.0); HEMATOCRIT 41.4 % (42.0-52.0); HEMOGLOBIN 12.7 g/dl (13.5-17.5); LYMPH # 1.2 10^3/uL (1.5-5.0); LYMPH % 9.5 % (24.0-44.0); MEAN CORPUSCULAR HEMOGLOBIN 27.9 pg (27.0-33.0); MEAN CORPUSCULAR HGB CONC 30.7 g/dl (32.0-36.5); MEAN CORPUSCULAR VOLUME 90.8 fl (80.0-96.0); MONO # 0.7 10^3/uL (0.0-0.8); MONO % 5.2 % (2.0-8.0); NEUTROPHILS # 10.8 10^3/uL (1.5-8.5); NEUTROPHILS % 83.9 % (36.0-66.0); PLATELET COUNT, AUTOMATED 238 10^3/uL (150-450); RED BLOOD COUNT 4.56 10^6/uL (4.30-6.10); WHITE BLOOD COUNT 12.9 10^3/uL (4.0-10.0)
[2021-10-28 15:11] LABS: INR 1.04
[2021-10-28 15:12] LABS: PARTIAL THROMBOPLASTIN TIME 26.1 SECONDS (25.9-37.0)
[2021-10-28 15:18] LABS: ALBUMIN 2.7 GM/DL (3.2-5.2); ALT/SGPT 23 U/L (12-78); BILIRUBIN,DIRECT < 0.1 MG/DL (0.0-0.2); BILIRUBIN,TOTAL 0.3 MG/DL (0.2-1.0); BLOOD UREA NITROGEN 23 MG/DL (7-18); CALCIUM LEVEL 8.3 MG/DL (8.8-10.2); CARBON DIOXIDE LEVEL 27 MEQ/L (21-32); CHLORIDE LEVEL 109 MEQ/L (98-107); CREATININE FOR GFR 1.91 MG/DL (0.70-1.30); GLOMERULAR FILTRATION RATE 37.8 (>49); GLUCOSE, FASTING 115 MG/DL (70-100); LIPASE 122 U/L (73-393); POTASSIUM SERUM 4.2 MEQ/L (3.5-5.1); SODIUM LEVEL 140 MEQ/L (136-145); TOTAL PROTEIN 7.3 GM/DL (6.4-8.2)
[2021-10-28 15:32] LABS: CK-MB VALUE MASS < 1.0 NG/ML (<3.6); CPK CREATINE PHOSPHOKINASE 68 U/L (39-308); MB/CK RELATIVE INDEX 1.47 (< OR =4)
[2021-10-28 15:40] LABS: RSV AMPLIFICATION NEGATIVE (NEGATIVE)
[2021-10-28 18:18] LABS: NT-PRO BNP 23 PG/ML (<125)
== END 2021-10-28 19:59 | disposition home or self-care (01) ==
LOC: M ED 13:12
DX: R55 Syncope and collapse (principal); I50.9 Heart failure, unspecified; K21.9 Gastro-esophageal reflux disease without esophagitis; E78.5 Hyperlipidemia, unspecified; Z86.73 Personal history of transient ischemic attack (TIA), and cerebral infarction without residual deficits; Z85.9 Personal history of malignant neoplasm, unspecified; Z87.891 Personal history of nicotine dependence; Z80.42 Family history of malignant neoplasm of prostate

== ENCOUNTER → 2021-11-30 | Outpatient (CLI) | payer OTHER, MEDICAID ==
[2021-11-30 14:25] LABS: ALBUMIN 3.3 GM/DL (3.2-5.2); BILIRUBIN,TOTAL 0.5 MG/DL (0.2-1.0); CALCIUM LEVEL 8.9 MG/DL (8.8-10.2); CREATININE FOR GFR 1.95 MG/DL (0.70-1.30); FREE T4 1.1 NG/DL (0.76-1.46); GLOMERULAR FILTRATION RATE 36.9 (>49); MAGNESIUM LEVEL 2.3 MG/DL (1.8-2.4); POTASSIUM SERUM 4.3 MEQ/L (3.5-5.1); THYROID STIMULATING HORMONE 2.78 uIU/ML (0.358-3.740)
[2021-11-30 14:26] LABS: PTH INTACT 53.7 PG/ML (18.5-88.0); TOTAL 25(OH) VITAMIN D 15.5 NG/ML (30.0-100.0)
== END ==
LOC: M PLALAB 10:36
PROVIDERS: ATTEND Family Medicine
DX: I11.0 Hypertensive heart disease with heart failure (principal); I50.32 Chronic diastolic (congestive) heart failure; Z79.899 Other long term (current) drug therapy

== ENCOUNTER → 2022-02-08 | Outpatient (CLI) | payer OTHER, MEDICAID ==
[~2022-02-08] MED LIST changes: -ASMA220A IN; +MOME220A IN
== END ==
LOC: M CARPUL 08:31
PROVIDERS: ATTEND Family Medicine
DX: I50.32 Chronic diastolic (congestive) heart failure (principal); I34.0 Nonrheumatic mitral (valve) insufficiency

== ENCOUNTER → 2022-06-27 | Outpatient (CLI) | payer OTHER, MEDICAID ==
[2022-06-27 15:57] LABS: HEMOGLOBIN A1c 5.9 % (4.0-6.0)
[2022-06-27 16:00] LABS: BASO # 0.1 10^3/uL (0.0-0.2); BASO % 0.7 % (0.0-1.0); EOS # 0.5 10^3/uL (0.0-0.5); EOS % 6.1 % (0.0-3.0); HEMATOCRIT 43.1 % (42.0-52.0); HEMOGLOBIN 12.7 g/dl (13.5-17.5); LYMPH # 2.3 10^3/uL (1.5-5.0); MEAN CORPUSCULAR HEMOGLOBIN 27.7 pg (27.0-33.0); MEAN CORPUSCULAR HGB CONC 29.5 g/dl (32.0-36.5); MEAN CORPUSCULAR VOLUME 93.9 fl (80.0-96.0); MONO # 0.6 10^3/uL (0.0-0.8); MONO % 7.8 % (2.0-8.0); PLATELET COUNT, AUTOMATED 245 10^3/uL (150-450); RED BLOOD COUNT 4.59 10^6/uL (4.30-6.10); WHITE BLOOD COUNT 7.4 10^3/uL (4.0-10.0)
[2022-06-27 16:16] LABS: ALBUMIN 2.9 G/DL (3.2-5.2); BILIRUBIN,TOTAL 0.2 MG/DL (0.3-1.2); CALCIUM LEVEL 8.5 MG/DL (8.3-10.6); CHOLESTEROL RISK RATIO 4.32 (<5); CREATININE FOR GFR 1.65 MG/DL (0.70-1.30); FERRITIN 43.7 NG/ML (10.5-307.3); GLOMERULAR FILTRATION RATE 44.7 (>49); HDL CHOLESTEROL 32.6 MG/DL (>40); LDL CHOLESTEROL 69.4 MG/DL (<100); POTASSIUM SERUM 4.7 MMOL/L (3.5-5.1); THYROID STIMULATING HORMONE 2.118 uIU/ML (0.55-4.78); TOTAL PROTEIN 7.4 G/DL (5.7-8.2)
[2022-06-27 16:17] LABS: FREE T4 1.09 NG/DL (0.89-1.76)
== END ==
LOC: M PLALAB 11:37
PROVIDERS: ATTEND Physician Assistant Medical
DX: N18.32 Chronic kidney disease, stage 3b (principal); Z12.11 Encounter for screening for malignant neoplasm of colon; R73.01 Impaired fasting glucose; I50.32 Chronic diastolic (congestive) heart failure; N40.1 Benign prostatic hyperplasia with lower urinary tract symptoms; D50.8 Other iron deficiency anemias; F33.1 Major depressive disorder, recurrent, moderate; Z12.5 Encounter for screening for malignant neoplasm of prostate; Z90.5 Acquired absence of kidney; K59.09 Other constipation; E78.2 Mixed hyperlipidemia; I69.321 Dysphasia following cerebral infarction; K21.9 Gastro-esophageal reflux disease without esophagitis; R33.9 Retention of urine, unspecified; G25.3 Myoclonus; J45.20 Mild intermittent asthma, uncomplicated; I69.359 Hemiplegia and hemiparesis following cerebral infarction affecting unspecified side
CPT/HCPCS: 36415; 80053; 80061; 82728; 83036; 83540; 83880; 84439; 84443; 84466; 85025; G0103

== ENCOUNTER → 2022-09-06 | Outpatient (CLI) | payer OTHER, MEDICAID ==
[2022-09-06 16:21] LABS: BASO # 0.1 10^3/uL (0.0-0.2); BASO % 0.7 % (0.0-1.0); EOS # 0.3 10^3/uL (0.0-0.5); EOS % 4.5 % (0.0-3.0); HEMATOCRIT 43.7 % (42.0-52.0); HEMOGLOBIN 13.1 g/dl (13.5-17.5); LYMPH % 26.9 % (24.0-44.0); MEAN CORPUSCULAR HEMOGLOBIN 27.6 pg (27.0-33.0); MEAN CORPUSCULAR VOLUME 92.2 fl (80.0-96.0); MONO # 0.6 10^3/uL (0.0-0.8); MONO % 8.5 % (2.0-8.0); NEUTROPHILS # 4.3 10^3/uL (1.5-8.5); NEUTROPHILS % 59.1 % (36.0-66.0); PLATELET COUNT, AUTOMATED 252 10^3/uL (150-450); RED BLOOD COUNT 4.74 10^6/uL (4.30-6.10); WHITE BLOOD COUNT 7.3 10^3/uL (4.0-10.0)
[2022-09-06 16:41] LABS: IRON (FE) 45 UG/DL (65-175)
[2022-09-06 16:44] LABS: ALBUMIN 3.1 G/DL (3.2-5.2); ALKALINE PHOSPHATASE 113 U/L (46-116); ALT/SGPT 13 U/L (7.0-40); AST/SGOT 18 U/L (<34); BILIRUBIN,TOTAL 0.2 MG/DL (0.3-1.2); BLOOD UREA NITROGEN 21 MG/DL (9-23); CALCIUM LEVEL 8.9 MG/DL (8.3-10.6); CARBON DIOXIDE LEVEL 29 MMOL/L (20-31); CHLORIDE LEVEL 107 MMOL/L (98-107); CREATININE FOR GFR 1.68 MG/DL (0.70-1.30); FERRITIN 17.9 NG/ML (10.5-307.3); GLOMERULAR FILTRATION RATE 43.7 (>49); GLUCOSE, FASTING 78 MG/DL (74-106); POTASSIUM SERUM 4.6 MMOL/L (3.5-5.1); SODIUM LEVEL 134 MMOL/L (136-145); TOTAL PROTEIN 7.5 G/DL (5.7-8.2)
== END ==
LOC: M PLALAB 14:02
PROVIDERS: ATTEND Physician Assistant Medical
DX: R73.01 Impaired fasting glucose (principal); I11.0 Hypertensive heart disease with heart failure; D50.8 Other iron deficiency anemias; I50.32 Chronic diastolic (congestive) heart failure; E78.2 Mixed hyperlipidemia

== ENCOUNTER 2022-09-15 08:52 | Outpatient (CLI) | payer OTHER, MEDICAID ==
[~2022-09-15] VITALS: Ht 170.2 cm; Wt 96.8 kg
[2022-09-15 08:40] VITALS: BP 140/95
[~2022-09-15 08:52] MED LIST changes: +ALBUTEROL SULFATE 2.5MG/0.5ML INH NEB SOLN INH PRN; +EPINEPHrine INJ 1 MG/ML 1ML AMP IM PRN; +diphenhydrAMINE 50MG/ML VIAL IV PRN; +methylPREDNISolone 125MG 2ML VIAL IV PRN
[2022-09-15] MEDS ORDERED: IRON SUCROSE 25 MG in NS 23.75 ML IV ONE (09:00)
[2022-09-15] MEDS ORDERED: NS 1,000 ML IV SCH (09:00)
[2022-09-15] MEDS ORDERED: IRON SUCROSE 225 MG in NS 213.75 ML IV ONE (09:00)
[2022-09-15 11:00] VITALS: BP 152/89
[2022-09-15 11:49] VITALS: BP 142/76
== END 2022-09-15 11:45 ==
LOC: M INFU 08:52
PROVIDERS: ATTEND Physician Assistant Medical
DX: D50.9 Iron deficiency anemia, unspecified (principal)
CPT/HCPCS: 96365; J1756

== ENCOUNTER → 2023-01-16 | Outpatient (CLI) | payer OTHER, MEDICAID ==
[~2023-01-16] MED LIST changes: -ALBUTEROL SULFATE 2.5MG/0.5ML INH NEB SOLN INH PRN; -EPINEPHrine INJ 1 MG/ML 1ML AMP IM PRN; -diphenhydrAMINE 50MG/ML VIAL IV PRN; -methylPREDNISolone 125MG 2ML VIAL IV PRN
[2023-01-16 15:54] LABS: FERRITIN 25.5 NG/ML (10.5-307.3)
[2023-01-16 15:57] LABS: BASO # 0.1 10^3/uL (0.0-0.2); BASO % 0.6 % (0.0-1.0); EOS # 0.4 10^3/uL (0.0-0.5); EOS % 4.5 % (0.0-3.0); HEMATOCRIT 42.5 % (42.0-52.0); HEMOGLOBIN 13.1 g/dl (13.5-17.5); LYMPH # 2.2 10^3/uL (1.5-5.0); LYMPH % 26.2 % (24.0-44.0); MEAN CORPUSCULAR HEMOGLOBIN 27.8 pg (27.0-33.0); MEAN CORPUSCULAR HGB CONC 30.8 g/dl (32.0-36.5); MEAN CORPUSCULAR VOLUME 90.2 fl (80.0-96.0); MONO # 0.9 10^3/uL (0.0-0.8); MONO % 10.9 % (2.0-8.0); NEUTROPHILS # 4.9 10^3/uL (1.5-8.5); NEUTROPHILS % 57.3 % (36.0-66.0); PLATELET COUNT, AUTOMATED 248 10^3/uL (150-450); RED BLOOD COUNT 4.71 10^6/uL (4.30-6.10); WHITE BLOOD COUNT 8.5 10^3/uL (4.0-10.0)
[2023-01-16 15:59] LABS: ALBUMIN 2.9 G/DL (3.2-5.2); BILIRUBIN,TOTAL 0.2 MG/DL (0.3-1.2); CALCIUM LEVEL 8.8 MG/DL (8.3-10.6); CHOLESTEROL RISK RATIO 4.01 (<5); CREATININE FOR GFR 1.6 MG/DL (0.70-1.30); GLOMERULAR FILTRATION RATE 46.3 (>49); HDL CHOLESTEROL 37.6 MG/DL (>40); LDL CHOLESTEROL 62.6 MG/DL (<100); NON-HDL-C 113.4 MG/DL; POTASSIUM SERUM 4.5 MMOL/L (3.5-5.1); TOTAL PROTEIN 7.4 G/DL (5.7-8.2)
[2023-01-16 18:09] LABS: APPEARANCE, URINE CLEAR (CLEAR); BACTERIA, URINE AUTO NEGATIVE (NEGATIVE); BILIRUBIN, URINE AUTO NEGATIVE (NEGATIVE); BLOOD, URINE BLOOD NEGATIVE (NEGATIVE); COLOR, URINE YELLOW (YELLOW); GLUCOSE, URINE (UA) AUTO NEGATIVE (NEGATIVE); KETONE, URINE AUTO NEGATIVE (NEGATIVE); LEUKOCYTE ESTERASE, URINE AUTO NEGATIVE (NEGATIVE); NITRITE, URINE AUTO NEGATIVE (NEGATIVE); PROTEIN, URINE AUTO NEGATIVE (NEGATIVE); RBC, URINE AUTO 0 /HPF (0-3); SQUAMOUS EPITHELIAL CELL UR AU 0 /HPF (0-6); UROBILINOGEN, URINE AUTO 0.2 mg/dL (0.0-2.0); WBC, URINE AUTO 0 /HPF (0-3)
== END ==
LOC: M PLALAB 14:08
PROVIDERS: ATTEND Physician Assistant Medical
DX: C64.9 Malignant neoplasm of unspecified kidney, except renal pelvis (principal); D50.8 Other iron deficiency anemias; I50.32 Chronic diastolic (congestive) heart failure; I11.0 Hypertensive heart disease with heart failure; N18.32 Chronic kidney disease, stage 3b; K21.9 Gastro-esophageal reflux disease without esophagitis; E78.2 Mixed hyperlipidemia; Z12.5 Encounter for screening for malignant neoplasm of prostate

== ENCOUNTER 2023-01-24 11:53 | Outpatient (CLI) | payer OTHER, MEDICAID ==
[~2023-01-24] VITALS: Ht 170.2 cm; Wt 102.3 kg
[2023-01-24 12:49] VITALS: BP 145/69; O2SAT 99
[2023-01-24] MEDS ORDERED: IRON SUCROSE 250 MG in NS 237.5 ML IV ONE (13:00)
[2023-01-24 14:43] VITALS: BP 144/78; O2SAT 97
== END 2023-01-24 14:40 | disposition home or self-care (01) ==
LOC: M INFU 11:53
PROVIDERS: ATTEND Physician Assistant Medical
DX: D50.9 Iron deficiency anemia, unspecified (principal)
CPT/HCPCS: 96365; J1756

== ENCOUNTER 2023-01-31 12:50 | Outpatient (CLI) | payer OTHER, MEDICAID ==
[2023-01-31 12:30] VITALS: BP 118/61; O2SAT 96
[~2023-01-31 12:50] MED LIST changes: +ACETAMINOPHEN 650MG PO PRIOR TO INFUSION PO ONE; +ALBUTEROL SULFATE 2.5MG/0.5ML INH NEB SOLN INH PRN; +EPINEPHrine INJ 1 MG/ML 1ML AMP IM PRN; +IRON SUCROSE 250 MG in NS 237.5 ML IV ONE; +NS 1,000 ML IV SCH; +diphenhydrAMINE 25MG PO PRIOR TO INFUSION PO ONE; +diphenhydrAMINE 50MG/ML VIAL IV PRN; +methylPREDNISolone 125MG 2ML VIAL IV PRN
[2023-01-31 14:25] VITALS: BP 118/68
== END 2023-01-31 14:30 | disposition home or self-care (01) ==
LOC: M INFU 12:50
PROVIDERS: ATTEND Physician Assistant Medical
DX: D50.9 Iron deficiency anemia, unspecified (principal)
CPT/HCPCS: 96365; J1756

== ENCOUNTER 2023-02-08 12:20 | Outpatient (CLI) | payer OTHER, MEDICAID ==
[~2023-02-08] VITALS: Ht 170.2 cm; Wt 102.3 kg
[2023-02-08 12:20] VITALS: BP 143/71; O2SAT 97
[~2023-02-08 12:20] MED LIST changes: -ACETAMINOPHEN 650MG PO PRIOR TO INFUSION PO ONE; -IRON SUCROSE 250 MG in NS 237.5 ML IV ONE; -NS 1,000 ML IV SCH; -diphenhydrAMINE 25MG PO PRIOR TO INFUSION PO ONE
[2023-02-08] MEDS ORDERED: IRON SUCROSE 250 MG in NS 237.5 ML IV ONE (12:35)
[2023-02-08] MEDS ORDERED: ACETAMINOPHEN 650MG PO PRIOR TO INFUSION PO ONE (12:35)
[2023-02-08] MEDS ORDERED: diphenhydrAMINE 25MG PO PRIOR TO INFUSION PO ONE (12:35)
[2023-02-08] MEDS ORDERED: NS 1,000 ML IV SCH (12:35)
[2023-02-08 15:00] VITALS: BP 147/73; O2SAT 96
== END 2023-02-08 15:15 ==
LOC: M INFU 12:20
PROVIDERS: ATTEND Physician Assistant Medical
DX: D50.9 Iron deficiency anemia, unspecified (principal)
CPT/HCPCS: 96365; 96366; J1756

== ENCOUNTER → 2023-05-24 | Outpatient (CLI) | payer OTHER, MEDICAID ==
[~2023-05-24] MED LIST changes: -ALBUTEROL SULFATE 2.5MG/0.5ML INH NEB SOLN INH PRN; -EPINEPHrine INJ 1 MG/ML 1ML AMP IM PRN; -diphenhydrAMINE 50MG/ML VIAL IV PRN; -methylPREDNISolone 125MG 2ML VIAL IV PRN
[2023-05-24 16:03] LABS: BASO # 0.1 10^3/uL (0.0-0.2); BASO % 0.8 % (0.0-1.0); EOS # 0.4 10^3/uL (0.0-0.5); EOS % 3.8 % (0.0-3.0); LYMPH # 2.6 10^3/uL (1.5-5.0); LYMPH % 27.4 % (24.0-44.0); MEAN CORPUSCULAR HGB CONC 31.1 g/dl (32.0-36.5); MEAN CORPUSCULAR VOLUME 93.4 fl (80.0-96.0); MONO # 1.1 10^3/uL (0.0-0.8); MONO % 11.5 % (2.0-8.0); NEUTROPHILS # 5.4 10^3/uL (1.5-8.5); NEUTROPHILS % 56.2 % (36.0-66.0); PLATELET COUNT, AUTOMATED 240 10^3/uL (150-450); RED BLOOD COUNT 4.82 10^6/uL (4.30-6.10); WHITE BLOOD COUNT 9.6 10^3/uL (4.0-10.0)
[2023-05-24 16:32] LABS: FERRITIN 96.8 NG/ML (10.5-307.3)
== END ==
LOC: M PLALAB 14:40
PROVIDERS: ATTEND Physician Assistant Medical
DX: D50.8 Other iron deficiency anemias (principal)

== ENCOUNTER 2023-06-12 09:21 | Outpatient (CLI) | payer OTHER, MEDICAID ==
[~2023-06-12] VITALS: Ht 170.2 cm; Wt 103.7 kg
[~2023-06-12 09:21] MED LIST changes: +ALBUTEROL SULFATE 2.5MG/0.5ML INH NEB SOLN INH PRN; +EPINEPHrine INJ 1 MG/ML 1ML AMP IM PRN; +NS 1,000 ML IV SCH; +diphenhydrAMINE 50MG/ML VIAL IV PRN; +methylPREDNISolone 125MG 2ML VIAL IV PRN
[2023-06-12 09:25] VITALS: BP 162/81; O2SAT 98
[2023-06-12] MEDS ORDERED: IRON SUCROSE 250 MG in NS 237.5 ML IV ONE (09:30)
[2023-06-12] MEDS ORDERED: diphenhydrAMINE 25MG PO PRIOR TO INFUSION PO ONE (09:30)
[2023-06-12] MEDS ORDERED: ACETAMINOPHEN 650MG PO PRIOR TO INFUSION PO ONE (09:30)
[2023-06-12 12:10] VITALS: BP 168/81; O2SAT 95
== END 2023-06-12 12:10 ==
LOC: M INFU 09:21
PROVIDERS: ATTEND Physician Assistant Medical
DX: D50.9 Iron deficiency anemia, unspecified (principal)
CPT/HCPCS: 96365; 96366; J1756

== ENCOUNTER 2023-06-27 12:38 | Outpatient (CLI) | payer OTHER, MEDICAID ==
[~2023-06-27] VITALS: Ht 170.2 cm; Wt 101.6 kg
[~2023-06-27 12:38] MED LIST changes: +ACETAMINOPHEN 650MG PO PRIOR TO INFUSION PO ONE; +IRON SUCROSE 250 MG in NS 237.5 ML IV ONE; +diphenhydrAMINE 25MG PO PRIOR TO INFUSION PO ONE
[2023-06-27 13:05] VITALS: BP 138/67; O2SAT 94
[2023-06-27] MEDS ORDERED: NS 1,000 ML IV SCH (13:05)
[2023-06-27] MEDS ORDERED: IRON SUCROSE 250 MG in NS 237.5 ML IV ONE (13:05)
[2023-06-27] MEDS ORDERED: ACETAMINOPHEN 650MG PO PRIOR TO INFUSION PO ONE (13:05)
[2023-06-27] MEDS ORDERED: diphenhydrAMINE 25MG PO PRIOR TO INFUSION PO ONE (13:05)
[2023-06-27 15:10] VITALS: BP 123/59; O2SAT 96
== END 2023-06-27 15:10 | disposition home or self-care (01) ==
LOC: M INFU 12:38
PROVIDERS: ATTEND Physician Assistant Medical
DX: D50.9 Iron deficiency anemia, unspecified (principal)
CPT/HCPCS: 96365; J1756

== ENCOUNTER → 2023-06-28 | Outpatient (CLI) | payer OTHER, MEDICAID ==
[~2023-06-28] MED LIST changes: -ACETAMINOPHEN 650MG PO PRIOR TO INFUSION PO ONE; -ALBUTEROL SULFATE 2.5MG/0.5ML INH NEB SOLN INH PRN; -EPINEPHrine INJ 1 MG/ML 1ML AMP IM PRN; -IRON SUCROSE 250 MG in NS 237.5 ML IV ONE; +ISOVUE-370 76% 100ML VIAL As Ordered ONE; -NS 1,000 ML IV SCH; -diphenhydrAMINE 25MG PO PRIOR TO INFUSION PO ONE; -diphenhydrAMINE 50MG/ML VIAL IV PRN; -methylPREDNISolone 125MG 2ML VIAL IV PRN
[2023-06-28 11:56] LABS: BASO # 0.1 10^3/uL (0.0-0.2); BASO % 0.6 % (0.0-1.0); EOS # 0.4 10^3/uL (0.0-0.5); EOS % 4.3 % (0.0-3.0); HEMATOCRIT 46.6 % (42.0-52.0); HEMOGLOBIN 14.5 g/dl (13.5-17.5); LYMPH # 2.3 10^3/uL (1.5-5.0); LYMPH % 25.8 % (24.0-44.0); MEAN CORPUSCULAR HEMOGLOBIN 29.2 pg (27.0-33.0); MEAN CORPUSCULAR HGB CONC 31.1 g/dl (32.0-36.5); MONO # 0.8 10^3/uL (0.0-0.8); MONO % 8.9 % (2.0-8.0); NEUTROPHILS # 5.4 10^3/uL (1.5-8.5); NEUTROPHILS % 60.1 % (36.0-66.0); PLATELET COUNT, AUTOMATED 229 10^3/uL (150-450); RED BLOOD COUNT 4.96 10^6/uL (4.30-6.10); WHITE BLOOD COUNT 8.9 10^3/uL (4.0-10.0)
[2023-06-28 12:18] LABS: PSA SCREENING 0.47 NG/ML (< 4.00)
[2023-06-28 12:19] LABS: BILIRUBIN,TOTAL 0.3 MG/DL (0.3-1.2); CALCIUM LEVEL 8.5 MG/DL (8.3-10.6); CREATININE FOR GFR 1.74 MG/DL (0.70-1.30); GLOMERULAR FILTRATION RATE 41.9 (>49); POTASSIUM SERUM 4.4 MMOL/L (3.5-5.1); TOTAL PROTEIN 7.3 G/DL (5.7-8.2)
[2023-06-28 12:21] LABS: FERRITIN 279.1 NG/ML (10.5-307.3)
[2023-06-28 12:23] LABS: HEMOGLOBIN A1c 6.6 % (4.0-6.0)
== END ==
LOC: M RAD 10:30
PROVIDERS: ATTEND Physician Assistant Medical
DX: J98.11 Atelectasis (principal); R06.02 Shortness of breath; I11.0 Hypertensive heart disease with heart failure; N18.32 Chronic kidney disease, stage 3b; R73.01 Impaired fasting glucose; Z12.5 Encounter for screening for malignant neoplasm of prostate; D50.8 Other iron deficiency anemias; I50.32 Chronic diastolic (congestive) heart failure
CPT/HCPCS: 36415; 71275; 80053; 82728; 83036; 83880; 85025; 85379; 93971; G0103; Q9967

== ENCOUNTER → 2023-08-09 | Outpatient (CLI) | payer OTHER, MEDICAID ==
[~2023-08-09] MED LIST changes: -ISOVUE-370 76% 100ML VIAL As Ordered ONE; -MIRA1POW3 PO; +MIRA33506 PO
[2023-08-09 14:29] LABS: BASO % 0.4 % (0.0-1.0); EOS # 0.4 10^3/uL (0.0-0.5); EOS % 4.4 % (0.0-3.0); HEMATOCRIT 44.1 % (42.0-52.0); HEMOGLOBIN 13.7 g/dl (13.5-17.5); LYMPH # 2.3 10^3/uL (1.5-5.0); LYMPH % 25.2 % (24.0-44.0); MEAN CORPUSCULAR HEMOGLOBIN 29.4 pg (27.0-33.0); MEAN CORPUSCULAR HGB CONC 31.1 g/dl (32.0-36.5); MEAN CORPUSCULAR VOLUME 94.6 fl (80.0-96.0); MONO # 0.8 10^3/uL (0.0-0.8); MONO % 8.7 % (2.0-8.0); NEUTROPHILS # 5.5 10^3/uL (1.5-8.5); NEUTROPHILS % 60.7 % (36.0-66.0); PLATELET COUNT, AUTOMATED 236 10^3/uL (150-450); RED BLOOD COUNT 4.66 10^6/uL (4.30-6.10); WHITE BLOOD COUNT 9.1 10^3/uL (4.0-10.0)
[2023-08-09 14:50] LABS: HEMOGLOBIN A1c 6.7 % (4.0-6.0)
[2023-08-09 15:00] LABS: BILIRUBIN,TOTAL 0.3 MG/DL (0.3-1.2); CALCIUM LEVEL 8.5 MG/DL (8.3-10.6); CREATININE FOR GFR 1.6 MG/DL (0.70-1.30); GLOMERULAR FILTRATION RATE 46.1 (>49); POTASSIUM SERUM 4.2 MMOL/L (3.5-5.1); TOTAL PROTEIN 7.1 G/DL (5.7-8.2)
== END ==
LOC: M PLALAB 10:35
PROVIDERS: ATTEND Physician Assistant Medical
DX: E11.9 Type 2 diabetes mellitus without complications (principal); Z90.5 Acquired absence of kidney; E66.01 Morbid (severe) obesity due to excess calories; J40 Bronchitis, not specified as acute or chronic; J45.20 Mild intermittent asthma, uncomplicated

== ENCOUNTER → 2023-11-06 | Outpatient (CLI) | payer OTHER, MEDICAID ==
[2023-11-06 14:04] LABS: HEMOGLOBIN A1c 6.7 % (4.0-6.0)
== END ==
LOC: M PLALAB 09:55
PROVIDERS: ATTEND Physician Assistant Medical
DX: E11.9 Type 2 diabetes mellitus without complications (principal)

== ENCOUNTER 2024-02-15 16:53 | Inpatient (IN) | payer OTHER, MEDICAID ==
[~2024-02-15] VITALS: Ht 170.2 cm; Wt 101.4 kg
[2024-02-15 17:48] LABS: BASO % 0.4 % (0.0-1.0); EOS # 0.1 10^3/uL (0.0-0.5); EOS % 0.5 % (0.0-3.0); HEMATOCRIT 46.7 % (42.0-52.0); HEMOGLOBIN 14.9 g/dl (13.5-17.5); LYMPH # 1.1 10^3/uL (1.5-5.0); LYMPH % 12.2 % (24.0-44.0); MEAN CORPUSCULAR HEMOGLOBIN 30.8 pg (27.0-33.0); MEAN CORPUSCULAR HGB CONC 31.9 g/dl (32.0-36.5); MEAN CORPUSCULAR VOLUME 96.7 fl (80.0-96.0); MONO # 0.9 10^3/uL (0.0-0.8); MONO % 9.5 % (2.0-8.0); NEUTROPHILS % 76.6 % (36.0-66.0); PLATELET COUNT, AUTOMATED 196 10^3/uL (150-450); RED BLOOD COUNT 4.83 10^6/uL (4.30-6.10); WHITE BLOOD COUNT 9.1 10^3/uL (4.0-10.0)
[2024-02-15 18:04] LABS: INR 1.15; PARTIAL THROMBOPLASTIN TIME 30.1 SECONDS (24.8-34.2); PROTHROMBIN TIME 14.4 SECONDS (12.5-14.5)
[2024-02-15 18:11] LABS: LIPASE 30 U/L (12-53)
[2024-02-15 18:14] LABS: ALKALINE PHOSPHATASE 107 U/L (46-116); ALT/SGPT 83 U/L (7.0-40); AST/SGOT 107 U/L (<34); BILIRUBIN,DIRECT < 0.1 MG/DL (<0.4); BILIRUBIN,TOTAL 0.3 MG/DL (0.3-1.2); BLOOD UREA NITROGEN 17 MG/DL (9-23); CALCIUM LEVEL 9.1 MG/DL (8.3-10.6); CARBON DIOXIDE LEVEL 33 MMOL/L (20-31); CHLORIDE LEVEL 102 MMOL/L (98-107); CK-MB VALUE MASS < 1.0 NG/ML (<3.6); CREATININE FOR GFR 1.66 MG/DL (0.70-1.30); GLOMERULAR FILTRATION RATE 44.2 (>49); GLUCOSE, FASTING 78 MG/DL (74-106); POTASSIUM SERUM 4.6 MMOL/L (3.5-5.1); SODIUM LEVEL 136 MMOL/L (136-145); TOTAL PROTEIN 7.8 G/DL (5.7-8.2)
[2024-02-15 18:15] LABS: THYROID STIMULATING HORMONE 0.776 uIU/ML (0.55-4.78)
[2024-02-15 18:16] LABS: FREE T4 1.04 NG/DL (0.89-1.76)
[2024-02-15 18:25] LABS: CPK CREATINE PHOSPHOKINASE 82 U/L (46-171); MB/CK RELATIVE INDEX 1.21 (< OR =4)
[2024-02-15] MEDS ORDERED: ISOVUE-370 76% 100ML VIAL As Ordered ONE (18:43)
[2024-02-15 19:14] LABS: CK-MB VALUE MASS < 1.0 NG/ML (<3.6)
[2024-02-15 19:26] LABS: CPK CREATINE PHOSPHOKINASE 85 U/L (46-171); MB/CK RELATIVE INDEX 1.17 (< OR =4)
[2024-02-15] MEDS: methylPREDNISolone 125MG 2ML VIAL IV ONE (20:31)
[2024-02-15] MEDS ORDERED: VENL150C43 PO (20:49)
[2024-02-15] MEDS ORDERED: SENO8.6T5 PO (20:49)
[2024-02-15] MEDS ORDERED: TIRZ2.5P3 SQ (20:49)
[2024-02-15] MEDS ORDERED: ALBU8.5H INH (20:49)
[2024-02-15] MEDS ORDERED: HOME MED LIST COMPLETE! XX SCH (20:50)
[2024-02-15] MEDS: IPRATROPIUM 0.5MG/ALBUTEROL 2.5MG INH SOL UD 3ML (DUONEB) NEB ONE ×2 (22:52→23:33)
[2024-02-15] MEDS ORDERED: IPRATROPIUM 0.5MG/ALBUTEROL 2.5MG INH SOL UD 3ML (DUONEB) NEB PRN (23:00)
[2024-02-15 23:08] LABS: VENOUS BASE EXCESS 1.4 (-2.0-2.0); VENOUS HCO3 28.7 MMOL/L (23.0-27.0); VENOUS O2 SATURATION 89.7 % (60.0-80.0); VENOUS PARTIAL PRESSURE CO2 56.2 mmHg (38.0-50.0); VENOUS PARTIAL PRESSURE O2 58.2 mmHg (30.0-50.0); VENOUS PH 7.326 UNITS (7.330-7.430); VENOUS STANDARD HCO3 25.5 MMOL/L; VENOUS TOTAL CO2 30.4 MMOL/L (24.0-28.0)
[2024-02-16] MEDS: REMDESIVIR 200 MG in NS 250 ML IV ONE (01:07)
[2024-02-16 01:48] VITALS: BP 123/66; TEMP 98.1; O2SAT 97
[2024-02-16] MEDS: IPRATROPIUM 0.5MG/ALBUTEROL 2.5MG INH SOL UD 3ML (DUONEB) NEB SCH (02:54)
[2024-02-16 04:00] VITALS: BP 132/68; TEMP 97.9; O2SAT 90
[2024-02-16] MEDS: BACLOFEN 10 MG TAB PO SCH (05:23)
[2024-02-16 05:47] LABS: BASO % 0.3 % (0.0-1.0); HEMATOCRIT 44.1 % (42.0-52.0); HEMOGLOBIN 13.8 g/dl (13.5-17.5); LYMPH # 0.5 10^3/uL (1.5-5.0); LYMPH % 7.4 % (24.0-44.0); MEAN CORPUSCULAR HEMOGLOBIN 30.1 pg (27.0-33.0); MEAN CORPUSCULAR HGB CONC 31.3 g/dl (32.0-36.5); MEAN CORPUSCULAR VOLUME 96.1 fl (80.0-96.0); MONO # 0.2 10^3/uL (0.0-0.8); MONO % 2.5 % (2.0-8.0); NEUTROPHILS # 6.3 10^3/uL (1.5-8.5); NEUTROPHILS % 89.2 % (36.0-66.0); PLATELET COUNT, AUTOMATED 191 10^3/uL (150-450); RED BLOOD COUNT 4.59 10^6/uL (4.30-6.10); WHITE BLOOD COUNT 7.1 10^3/uL (4.0-10.0)
[2024-02-16 06:17] LABS: CALCIUM LEVEL 8.9 MG/DL (8.3-10.6); CREATININE FOR GFR 1.66 MG/DL (0.70-1.30); GLOMERULAR FILTRATION RATE 44.2 (>49); POTASSIUM SERUM 4.6 MMOL/L (3.5-5.1)
[2024-02-16 06:18] LABS: ALBUMIN 2.7 G/DL (3.2-5.2); ALKALINE PHOSPHATASE 96 U/L (46-116); ALT/SGPT 76 U/L (7.0-40); AST/SGOT 93 U/L (<34); BILIRUBIN,DIRECT < 0.1 MG/DL (<0.4); BILIRUBIN,TOTAL 0.2 MG/DL (0.3-1.2)
[2024-02-16 08:00] VITALS: O2SAT 93
[2024-02-16] MEDS: ASPIRIN 81MG ENTERIC TABLET PO SCH (09:53)
[2024-02-16] MEDS: CitaloPRAM (CeleXA) 20 MG TAB PO SCH (09:54)
[2024-02-16] MEDS: SUCRALFATE 1 GM TAB PO SCH (09:54)
[2024-02-16] MEDS: SENOKOT S TAB PO SCH (09:54)
[2024-02-16] MEDS: PANTOPRAZOLE 40MG TAB (PROTONIX) PO SCH (09:54)
[2024-02-16] MEDS: HEPARIN SOD (PORCINE) 5000UNITS/ML 1ML VIAL/SYRINGE SC SCH (09:54)
[2024-02-16] MEDS: methylPREDNISolone 40MG 1ML VIAL IV SCH (09:54)
[2024-02-16] MEDS: DOCUSATE SODIUM 100MG CAPSULE PO SCH (09:54)
[2024-02-16] MEDS: levETIRAcetam 250MG TABLET (KEPPRA) PO SCH (09:54)
[2024-02-16] MEDS: VENLAFAXINE **XR** 75MG CAPSULE PO SCH (09:56)
[2024-02-16 12:00] VITALS: BP 190/87; TEMP 97.9; O2SAT 92; O2SAT 93
[2024-02-16 16:11] VITALS: O2SAT 92
[2024-02-16 19:48] VITALS: BP 171/88; TEMP 97.7; O2SAT 96
[2024-02-16] MEDS: REMDESIVIR 100 MG in NS 250 ML IV SCH (20:58)
[2024-02-16] MEDS: ATORVASTATIN 20 MG TAB PO SCH (20:59)
[2024-02-17 04:00] VITALS: BP 165/79; TEMP 98.6; O2SAT 92; O2SAT 95
[2024-02-17 08:05] LABS: BASO % 0.1 % (0.0-1.0); HEMATOCRIT 45.5 % (42.0-52.0); HEMOGLOBIN 14.2 g/dl (13.5-17.5); LYMPH # 1.4 10^3/uL (1.5-5.0); LYMPH % 14.1 % (24.0-44.0); MEAN CORPUSCULAR HEMOGLOBIN 29.8 pg (27.0-33.0); MEAN CORPUSCULAR HGB CONC 31.2 g/dl (32.0-36.5); MEAN CORPUSCULAR VOLUME 95.6 fl (80.0-96.0); MONO # 0.8 10^3/uL (0.0-0.8); MONO % 8.4 % (2.0-8.0); NEUTROPHILS # 7.7 10^3/uL (1.5-8.5); NEUTROPHILS % 77.1 % (36.0-66.0); PLATELET COUNT, AUTOMATED 204 10^3/uL (150-450); RED BLOOD COUNT 4.76 10^6/uL (4.30-6.10)
[2024-02-17 08:47] LABS: ALBUMIN 2.6 G/DL (3.2-5.2); BILIRUBIN,TOTAL 0.2 MG/DL (0.3-1.2); CALCIUM LEVEL 8.8 MG/DL (8.3-10.6); CREATININE FOR GFR 1.67 MG/DL (0.70-1.30); GLOMERULAR FILTRATION RATE 43.9 (>49); MAGNESIUM LEVEL 2.1 MG/DL (1.8-2.4); POTASSIUM SERUM 4.6 MMOL/L (3.5-5.1)
[2024-02-17 09:26] VITALS: O2SAT 94
[2024-02-17 12:00] VITALS: BP 154/78; TEMP 98.1; O2SAT 96
[2024-02-17 20:11] VITALS: BP 127/74; TEMP 98.4; O2SAT 93
[2024-02-18 04:21] VITALS: BP 126/75; TEMP 97.9; O2SAT 92
[2024-02-18 05:09] LABS: BASO % 0.2 % (0.0-1.0); EOS % 0.1 % (0.0-3.0); HEMATOCRIT 47.1 % (42.0-52.0); HEMOGLOBIN 14.8 g/dl (13.5-17.5); LYMPH # 1.9 10^3/uL (1.5-5.0); LYMPH % 17.3 % (24.0-44.0); MEAN CORPUSCULAR HEMOGLOBIN 30.1 pg (27.0-33.0); MEAN CORPUSCULAR HGB CONC 31.4 g/dl (32.0-36.5); MEAN CORPUSCULAR VOLUME 95.7 fl (80.0-96.0); MONO # 0.9 10^3/uL (0.0-0.8); MONO % 7.9 % (2.0-8.0); NEUTROPHILS # 8.2 10^3/uL (1.5-8.5); PLATELET COUNT, AUTOMATED 199 10^3/uL (150-450); RED BLOOD COUNT 4.92 10^6/uL (4.30-6.10)
[2024-02-18 05:42] LABS: ALBUMIN 2.7 G/DL (3.2-5.2); BILIRUBIN,TOTAL 0.2 MG/DL (0.3-1.2); CALCIUM LEVEL 8.8 MG/DL (8.3-10.6); CREATININE FOR GFR 1.6 MG/DL (0.70-1.30); GLOMERULAR FILTRATION RATE 46.1 (>49); MAGNESIUM LEVEL 1.9 MG/DL (1.8-2.4); POTASSIUM SERUM 4.3 MMOL/L (3.5-5.1); TOTAL PROTEIN 7.2 G/DL (5.7-8.2)
[2024-02-18 08:30] VITALS: O2SAT 86
[2024-02-18 08:31] VITALS: O2SAT 90
[2024-02-18 13:02] VITALS: BP 160/88; TEMP 98.1; O2SAT 93
[2024-02-18] MEDS ORDERED: BISACODYL 10MG SUPP PR PRN (18:50)
[2024-02-18] MEDS ORDERED: MIRALAX *UNIT DOSE* 17GM PACKET PO PRN (18:50)
[2024-02-18 20:00] VITALS: O2SAT 92
[2024-02-18 20:44] VITALS: BP 160/84; TEMP 97.9; O2SAT 92
[2024-02-18] MEDS: SENOKOT S TAB PO SCH (20:49)
[2024-02-19] VITALS (11 sets, daily range): BP systolic 134–154; BP diastolic 73–82; TEMP 97.7–98.6; O2SAT 85–96
[2024-02-19 05:10] LABS: BASO % 0.3 % (0.0-1.0); EOS % 0.2 % (0.0-3.0); HEMATOCRIT 46.8 % (42.0-52.0); HEMOGLOBIN 14.6 g/dl (13.5-17.5); LYMPH # 2.4 10^3/uL (1.5-5.0); LYMPH % 26.5 % (24.0-44.0); MEAN CORPUSCULAR HEMOGLOBIN 29.9 pg (27.0-33.0); MEAN CORPUSCULAR HGB CONC 31.2 g/dl (32.0-36.5); MEAN CORPUSCULAR VOLUME 95.7 fl (80.0-96.0); MONO % 10.5 % (2.0-8.0); NEUTROPHILS # 5.7 10^3/uL (1.5-8.5); NEUTROPHILS % 61.7 % (36.0-66.0); PLATELET COUNT, AUTOMATED 208 10^3/uL (150-450); RED BLOOD COUNT 4.89 10^6/uL (4.30-6.10); WHITE BLOOD COUNT 9.2 10^3/uL (4.0-10.0)
[2024-02-19 05:31] LABS: ALBUMIN 2.6 G/DL (3.2-5.2); BILIRUBIN,TOTAL 0.3 MG/DL (0.3-1.2); CALCIUM LEVEL 8.5 MG/DL (8.3-10.6); CREATININE FOR GFR 1.53 MG/DL (0.70-1.30); GLOMERULAR FILTRATION RATE 48.6 (>49); MAGNESIUM LEVEL 1.9 MG/DL (1.8-2.4); POTASSIUM SERUM 4.2 MMOL/L (3.5-5.1)
[2024-02-19] MEDS: MOM 30ML SUSPENSION UDC PO PRN (14:32)
[2024-02-20] VITALS (8 sets, daily range): BP systolic 95–140; BP diastolic 60–84; TEMP 97.5–98.1; O2SAT 84–92
[2024-02-20 05:36] LABS: BASO % 0.5 % (0.0-1.0); EOS # 0.1 10^3/uL (0.0-0.5); EOS % 0.6 % (0.0-3.0); HEMATOCRIT 46.3 % (42.0-52.0); HEMOGLOBIN 14.6 g/dl (13.5-17.5); LYMPH # 2.9 10^3/uL (1.5-5.0); LYMPH % 33.8 % (24.0-44.0); MEAN CORPUSCULAR HEMOGLOBIN 29.9 pg (27.0-33.0); MEAN CORPUSCULAR HGB CONC 31.5 g/dl (32.0-36.5); MEAN CORPUSCULAR VOLUME 94.7 fl (80.0-96.0); MONO # 0.9 10^3/uL (0.0-0.8); MONO % 10.2 % (2.0-8.0); NEUTROPHILS # 4.5 10^3/uL (1.5-8.5); NEUTROPHILS % 53.1 % (36.0-66.0); PLATELET COUNT, AUTOMATED 218 10^3/uL (150-450); RED BLOOD COUNT 4.89 10^6/uL (4.30-6.10); WHITE BLOOD COUNT 8.4 10^3/uL (4.0-10.0)
[2024-02-20 06:01] LABS: ALBUMIN 2.6 G/DL (3.2-5.2); BILIRUBIN,TOTAL 0.2 MG/DL (0.3-1.2); CALCIUM LEVEL 8.7 MG/DL (8.3-10.6); CREATININE FOR GFR 1.84 MG/DL (0.70-1.30); GLOMERULAR FILTRATION RATE 39.3 (>49); MAGNESIUM LEVEL 2.4 MG/DL (1.8-2.4); POTASSIUM SERUM 4.3 MMOL/L (3.5-5.1)
[2024-02-20] MEDS: predniSONE 20 MG TAB PO SCH (08:12)
[2024-02-20 15:12] LABS: PROCALCITONIN 0.17 ng/ml
[2024-02-20] MEDS ORDERED: PRED10TA2 PO (15:13)
[2024-02-20] MEDS ORDERED: PRED20TA PO (15:13)
[2024-02-20] MEDS ORDERED: LEVO1TAB40 PO (15:14)
== END 2024-02-20 18:45 | disposition home health service (06) | DRG 177 ==
LOC: M ED 16:53 → M ED INP 02-16 00:08 → M MSPAV 02-16 01:48
PROVIDERS: ADMIT Family Medicine; ATTEND Internal Medicine
PROC: XW033E5 Introduction of Remdesivir Anti-infective into Peripheral Vein, Percutaneous Approach, New Technology Group 5 (ICD-10-PCS; 2024-02-16)
PROC: 3E0333Z Introduction of Anti-inflammatory into Peripheral Vein, Percutaneous Approach (ICD-10-PCS; principal; 2024-02-17)
DX: U07.1 COVID-19 (principal); J15.9 Unspecified bacterial pneumonia; I50.32 Chronic diastolic (congestive) heart failure; I13.0 Hypertensive heart and chronic kidney disease with heart failure and stage 1 through stage 4 chronic kidney disease, or unspecified chronic kidney disease; I69.351 Hemiplegia and hemiparesis following cerebral infarction affecting right dominant side; J44.1 Chronic obstructive pulmonary disease with (acute) exacerbation; N17.9 Acute kidney failure, unspecified; E78.5 Hyperlipidemia, unspecified; N18.30 Chronic kidney disease, stage 3 unspecified; D50.9 Iron deficiency anemia, unspecified; G40.909 Epilepsy, unspecified, not intractable, without status epilepticus; I69.320 Aphasia following cerebral infarction; F32.A Depression, unspecified; F41.9 Anxiety disorder, unspecified; K21.9 Gastro-esophageal reflux disease without esophagitis; K59.00 Constipation, unspecified; Z90.49 Acquired absence of other specified parts of digestive tract; Z90.5 Acquired absence of kidney; Z85.528 Personal history of other malignant neoplasm of kidney; Z87.891 Personal history of nicotine dependence; Z98.41 Cataract extraction status, right eye

== ENCOUNTER → 2024-03-19 | Outpatient (CLI) | payer OTHER, MEDICAID ==
[~2024-03-19] MED LIST changes: +ALBU8.5H INH; +LEVO1TAB40 PO; +PRED10TA2 PO; +PRED20TA PO; +SENO8.6T5 PO; +TIRZ2.5P3 SQ; +VENL150C43 PO
[2024-03-19 11:00] LABS: BASO # 0.1 10^3/uL (0.0-0.2); BASO % 0.8 % (0.0-1.0); EOS # 0.6 10^3/uL (0.0-0.5); EOS % 8.5 % (0.0-3.0); HEMATOCRIT 44.3 % (42.0-52.0); HEMOGLOBIN 13.7 g/dl (13.5-17.5); LYMPH # 1.9 10^3/uL (1.5-5.0); LYMPH % 26.1 % (24.0-44.0); MEAN CORPUSCULAR HGB CONC 30.9 g/dl (32.0-36.5); MEAN CORPUSCULAR VOLUME 96.9 fl (80.0-96.0); MONO # 0.7 10^3/uL (0.0-0.8); MONO % 9.1 % (2.0-8.0); NEUTROPHILS # 3.9 10^3/uL (1.5-8.5); NEUTROPHILS % 54.7 % (36.0-66.0); PLATELET COUNT, AUTOMATED 201 10^3/uL (150-450); RED BLOOD COUNT 4.57 10^6/uL (4.30-6.10); WHITE BLOOD COUNT 7.1 10^3/uL (4.0-10.0)
[2024-03-19 11:22] LABS: ALBUMIN 2.8 G/DL (3.2-5.2); BILIRUBIN,TOTAL 0.3 MG/DL (0.3-1.2); CALCIUM LEVEL 9.1 MG/DL (8.3-10.6); CREATININE FOR GFR 1.39 MG/DL (0.70-1.30); GLOMERULAR FILTRATION RATE 54.3 (>49); POTASSIUM SERUM 4.8 MMOL/L (3.5-5.1); TOTAL PROTEIN 7.2 G/DL (5.7-8.2)
[2024-03-19 11:24] LABS: FERRITIN 288.3 NG/ML (10.5-307.3)
[2024-03-19 13:57] LABS: APPEARANCE, URINE CLEAR (CLEAR); BACTERIA, URINE AUTO NEGATIVE (NEGATIVE); BILIRUBIN, URINE AUTO NEGATIVE (NEGATIVE); BLOOD, URINE BLOOD NEGATIVE (NEGATIVE); COLOR, URINE YELLOW (YELLOW); GLUCOSE, URINE (UA) AUTO NEGATIVE (NEGATIVE); KETONE, URINE AUTO NEGATIVE (NEGATIVE); LEUKOCYTE ESTERASE, URINE AUTO NEGATIVE (NEGATIVE); NITRITE, URINE AUTO NEGATIVE (NEGATIVE); PROTEIN, URINE AUTO NEGATIVE (NEGATIVE); RBC, URINE AUTO 0 /HPF (0-3); SPECIFIC GRAVITY URINE AUTO 1.012 (1.002-1.035); SQUAMOUS EPITHELIAL CELL UR AU 0 /HPF (0-6); UROBILINOGEN, URINE AUTO 0.2 mg/dL (0.0-2.0); WBC, URINE AUTO 0 /HPF (0-3)
== END ==
LOC: M PLALAB 08:54
PROVIDERS: ATTEND Physician Assistant Medical
DX: U07.1 COVID-19 (principal); J12.82 Pneumonia due to coronavirus disease 2019; K21.9 Gastro-esophageal reflux disease without esophagitis; I11.0 Hypertensive heart disease with heart failure; E61.1 Iron deficiency; I50.32 Chronic diastolic (congestive) heart failure; C64.9 Malignant neoplasm of unspecified kidney, except renal pelvis; J98.11 Atelectasis

== ENCOUNTER → 2024-09-11 | Outpatient (CLI) | payer OTHER, MEDICAID ==
[~2024-09-11] MED LIST changes: +NYST1POW3 TOP; -NYST1POW9 TOP
[2024-09-11 10:44] LABS: BASO # 0.1 10^3/uL (0.0-0.2); BASO % 0.7 % (0.0-1.0); EOS # 0.5 10^3/uL (0.0-0.5); EOS % 5.7 % (0.0-3.0); HEMATOCRIT 47.3 % (42.0-52.0); HEMOGLOBIN 14.8 g/dl (13.5-17.5); LYMPH # 2.5 10^3/uL (1.5-5.0); LYMPH % 29.2 % (24.0-44.0); MEAN CORPUSCULAR HEMOGLOBIN 29.7 pg (27.0-33.0); MEAN CORPUSCULAR HGB CONC 31.3 g/dl (32.0-36.5); MEAN CORPUSCULAR VOLUME 94.8 fl (80.0-96.0); MONO # 0.7 10^3/uL (0.0-0.8); MONO % 7.5 % (2.0-8.0); NEUTROPHILS # 4.9 10^3/uL (1.5-8.5); NEUTROPHILS % 56.6 % (36.0-66.0); PLATELET COUNT, AUTOMATED 240 10^3/uL (150-450); RED BLOOD COUNT 4.99 10^6/uL (4.30-6.10); WHITE BLOOD COUNT 8.7 10^3/uL (4.0-10.0)
[2024-09-11 11:10] LABS: PSA SCREENING 0.65 NG/ML (< 4.00)
[2024-09-11 11:14] LABS: ALBUMIN 2.9 G/DL (3.2-5.2); BILIRUBIN,TOTAL 0.3 MG/DL (0.3-1.2); CHOLESTEROL RISK RATIO 6.77 (<5); CREATININE FOR GFR 1.58 MG/DL (0.70-1.30); FERRITIN 223.5 NG/ML (10.5-307.3); FREE T4 1.21 NG/DL (0.89-1.76); GLOMERULAR FILTRATION RATE 47.4 (>49); HDL CHOLESTEROL 36.9 MG/DL (>40); LDL CHOLESTEROL 154.1 MG/DL (<100); NON-HDL-C 213.1 MG/DL; POTASSIUM SERUM 4.5 MMOL/L (3.5-5.1)
[2024-09-11 11:17] LABS: THYROID STIMULATING HORMONE 3.976 uIU/ML (0.55-4.78)
== END ==
LOC: M PLALAB 09:03
PROVIDERS: ATTEND Physician Assistant Medical
DX: E78.2 Mixed hyperlipidemia (principal); I10 Essential (primary) hypertension; R53.1 Weakness; E61.1 Iron deficiency; N40.0 Benign prostatic hyperplasia without lower urinary tract symptoms; Z12.5 Encounter for screening for malignant neoplasm of prostate
CPT/HCPCS: 36415; 80053; 80061; 82728; 83540; 84439; 84443; 85025; G0103

== ENCOUNTER → 2025-01-09 | Outpatient (CLI) | payer OTHER, MEDICAID ==
[~2025-01-09] MED LIST changes: -FLOM0.4C39 PO; +LEVE1TAB43 PO; -LEVE500T88 PO; +SENN-225 PO; -SENO8.6T5 PO; +TAMS-18 PO
[2025-01-09 12:46] LABS: CALCIUM LEVEL 8.9 MG/DL (8.3-10.6); CARBON DIOXIDE LEVEL 28.0 MMOL/L (20-31); CHLORIDE LEVEL 102.0 MMOL/L (98-107); CHOLESTEROL LEVEL 278.0 MG/DL (<200); CHOLESTEROL RISK RATIO 7.87 (<5); CREATININE FOR GFR 1.7 MG/DL (0.70-1.30); GLOMERULAR FILTRATION RATE 43.4 (>49); LDL CHOLESTEROL 189.9 MG/DL (<100); MAGNESIUM LEVEL 2.1 MG/DL (1.8-2.4); NON-HDL-C 242.7 MG/DL; POTASSIUM SERUM 4.8 MMOL/L (3.5-5.1); SODIUM LEVEL 143.0 MMOL/L (136-145); TRIGLYCERIDES LEVEL 264.0 MG/DL (<150)
[2025-01-09 12:47] LABS: BASO # 0.1 10^3/uL (0.0-0.2); BASO % 0.9 % (0.0-1.0); EOS # 0.5 10^3/uL (0.0-0.5); EOS % 6.0 % (0.0-3.0); LYMPH # 2.2 10^3/uL (1.5-5.0); LYMPH % 27.5 % (24.0-44.0); MONO # 0.8 10^3/uL (0.0-0.8); MONO % 9.4 % (2.0-8.0); NEUTROPHILS # 4.4 10^3/uL (1.5-8.5); NEUTROPHILS % 55.8 % (36.0-66.0); PLATELET COUNT, AUTOMATED 245 10^3/uL (150-450)
== END ==
LOC: M PLALAB 09:17
PROVIDERS: ATTEND Physician Assistant Medical
DX: I11.0 Hypertensive heart disease with heart failure (principal); R79.89 Other specified abnormal findings of blood chemistry; G25.3 Myoclonus; I69.359 Hemiplegia and hemiparesis following cerebral infarction affecting unspecified side; E11.51 Type 2 diabetes mellitus with diabetic peripheral angiopathy without gangrene

== ENCOUNTER → 2025-01-09 | Outpatient (REF) | payer OTHER, MEDICAID | LOC: M SFHCPLAZ 09:05 | PROVIDERS: ATTEND Physician Assistant Medical | DX: Z53.9 Procedure and treatment not carried out, unspecified reason (principal) ==

== ENCOUNTER → 2025-01-15 | Outpatient (CLI) | payer OTHER, MEDICAID ==
[2025-01-15 15:23] LABS: CALCIUM LEVEL 9.6 MG/DL (8.3-10.6); CARBON DIOXIDE LEVEL 28.0 MMOL/L (20-31); CHLORIDE LEVEL 103.0 MMOL/L (98-107); CHOLESTEROL LEVEL 279.0 MG/DL (<200); CHOLESTEROL RISK RATIO 8.4 (<5); CREATININE FOR GFR 1.6 MG/DL (0.70-1.30); GLOMERULAR FILTRATION RATE 46.6 (>49); LDL CHOLESTEROL 181.8 MG/DL (<100); NON-HDL-C 245.8 MG/DL; POTASSIUM SERUM 4.6 MMOL/L (3.5-5.1); SODIUM LEVEL 139.0 MMOL/L (136-145); TRIGLYCERIDES LEVEL 320.0 MG/DL (<150)
[2025-01-15 15:45] LABS: ESTIMATED AVERAGE GLUCOSE 214.0 MG/DL (60-110)
== END ==
LOC: M PLALAB 13:17
PROVIDERS: ATTEND Physician Assistant Medical
DX: R79.89 Other specified abnormal findings of blood chemistry (principal); E11.9 Type 2 diabetes mellitus without complications; N17.9 Acute kidney failure, unspecified; E78.2 Mixed hyperlipidemia

== ENCOUNTER → 2025-02-07 | Outpatient (CLI) | payer OTHER, MEDICAID ==
[2025-02-07 15:19] LABS: BASO # 0.1 10^3/uL (0.0-0.2); BASO % 0.6 % (0.0-1.0); EOS # 0.6 10^3/uL (0.0-0.5); EOS % 6.1 % (0.0-3.0); LYMPH # 2.4 10^3/uL (1.5-5.0); LYMPH % 24.9 % (24.0-44.0); MONO # 0.7 10^3/uL (0.0-0.8); MONO % 7.5 % (2.0-8.0); NEUTROPHILS # 5.7 10^3/uL (1.5-8.5); NEUTROPHILS % 60.5 % (36.0-66.0); PLATELET COUNT, AUTOMATED 212 10^3/uL (150-450)
[2025-02-07 15:26] LABS: ALT/SGPT 27 U/L (7.0-40); AST/SGOT 33 U/L (<34); CALCIUM LEVEL 9.6 MG/DL (8.3-10.6); CARBON DIOXIDE LEVEL 27 MMOL/L (20-31); CHLORIDE LEVEL 105 MMOL/L (98-107); CREATININE FOR GFR 1.73 MG/DL (0.70-1.30); GLOMERULAR FILTRATION RATE 42.5 (>49); POTASSIUM SERUM 4.7 MMOL/L (3.5-5.1); SODIUM LEVEL 144 MMOL/L (136-145)
[2025-02-07 15:34] LABS: HEPATITIS B SURFACE ANTIBODY NEGATIVE (POSITIVE)
[2025-02-07 15:38] LABS: ESTIMATED AVERAGE GLUCOSE 189.0 MG/DL (60-110)
[2025-02-07 16:06] LABS: HEPATITIS C VIRUS ABY INDEX 0.03 INDEX (<0.8)
[2025-02-07 16:38] LABS: INR 1.14
[2025-02-09 22:42] LABS: HEPATITIS A IgG TOTAL REACTIVE (NON-REACTIVE)
[2025-02-11 15:13] LABS: AFP TUMOR TOTAL 1.8 ng/mL (1.6-4.5)
[2025-02-13 15:06] LABS: ALPHA 2-MACROGLOBULINS,QN 244 mg/dL (106-279); ALT (SGPT) P5P 20 U/L (9-46); APOLIPOPROTEIN A-1 112 mg/dL (94-176); FIBROSIS SCORE 0.37; FIBROSIS STAGE MINIMAL FIBROSIS (F0); GGT 46 U/L (3-70); HAPTOGLOBIN 263 mg/dL (43-212); NECROINFLAM ACT GRADE NO ACTIVITY (A0); NECROINFLAM ACT SCORE 0.09
== END ==
LOC: M PLALAB 11:03
PROVIDERS: ATTEND Physician Assistant Medical
DX: R79.89 Other specified abnormal findings of blood chemistry (principal); Z11.59 Encounter for screening for other viral diseases

== ENCOUNTER → 2025-04-17 | Outpatient (CLI) | payer OTHER, MEDICAID ==
[2025-04-17 13:52] LABS: ALT/SGPT 12.0 U/L (7.0-40); AST/SGOT 20.0 U/L (<34); CALCIUM LEVEL 9.5 MG/DL (8.3-10.6); CARBON DIOXIDE LEVEL 27.0 MMOL/L (20-31); CHLORIDE LEVEL 105.0 MMOL/L (98-107); CHOLESTEROL LEVEL 126.0 MG/DL (<200); CHOLESTEROL RISK RATIO 3.94 (<5); CPK CREATINE PHOSPHOKINASE 43.0 U/L (46-171); CREATININE FOR GFR 1.73 MG/DL (0.70-1.30); GLOMERULAR FILTRATION RATE 42.5 (>49); LDL CHOLESTEROL 61.7 MG/DL (<100); NON-HDL-C 94.1 MG/DL; POTASSIUM SERUM 4.7 MMOL/L (3.5-5.1); SODIUM LEVEL 142.0 MMOL/L (136-145); TRIGLYCERIDES LEVEL 162.0 MG/DL (<150)
== END ==
LOC: M PLALAB 10:44
PROVIDERS: ATTEND Physician Assistant Medical
DX: E78.2 Mixed hyperlipidemia (principal)